=== PATIENT | male | born 1960 | race Caucasian/White ===

== ENCOUNTER 2020-01-15 13:03 | Inpatient (IN) ==
[2020-01-15] MEDS ORDERED: SODIUM CHLORIDE 0.9% 1000ML 1,000 ML IV SCH (13:45)
[2020-01-15] MEDS ORDERED: MoRPHine SULFATE 4 MG/ML 1 ML CARP\\VIAL IV STA (13:46)
[2020-01-15] MEDS ORDERED: ONDANSETRON INJ 2 MG/ML 2 ML VIAL IV STA (13:46)
--- NOTE | 2020-01-15 13:58 | Emergency Department Note ---
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 Symptoms began 2 to 3 days ago and have been progressively worsening. Last evening, the patient reports a fever of 102 F. He took 1 dose of cold medicine last night, but has taken no other medication since. Patient states the cough is nonproductive. He does report a history of hypertension, but denies any history of PE, DVT, CHF, asthma, or COPD. Patient denies any abdominal pain, nausea, vomiting. 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 He does live with family, but states nobody else in the household is sick. Patient denies any recent trauma or injury. He does report chronic wounds and skin discoloration on the bilateral feet which has not changed. Related Data Home oxygen amount: none Home Medications Home Medications Medication Instructions Recorded Confirmed Type amlodipine 10 mg PO DAILY@69901/15/20 01/15/20 History aspirin 81 mg PO DAILY@69901/15/20 01/15/20 History cholecalciferol (vitamin D3) 125 mcg PO DAILY@69901/15/20 01/15/20 History [Vitamin D3] doxazosin 2 mg PO BID 01/15/20 01/15/20 History furosemide 20 mg PO BID 01/15/20 01/15/20 History lisinopril 20 mg PO BID 01/15/20 01/15/20 History potassium chloride 10 meq PO DAILY@69901/15/20 01/15/20 History pravastatin 20 mg PO DAILY@69901/15/20 01/15/20 History Allergies Allergy/AdvReac Type Severity Reaction Status Date / Time No Known Allergies Allergy Unverified 01/15/20 14:26 Past Med/Surg History Medical History Hypertension Social History Feels Safe at Home: Yes Smoking Status: Never smoker Review of Systems A total of 10 systems reviewed and were otherwise negative Physical Exam Vital Signs: Vital Signs - 24 hr 01/15/20 13:03 01/15/20 13:13 01/15/20 13:42 Temperature 37.6 C H Temperature Source Oral Pulse Rate 78 Pulse Rate [Apical ] Pulse Rate from Sp O2 Sensor Respiratory Rate 24 Blood Pressure 111/65 Blood Pressure [Le ft Arm] Blood Pressure Jennifer n 80 Blood Pressure Jennifer n [Left Arm] Pulse Oximetry 90 91 90 Oxygen Delivery Me thod Room Air Nasal Can nula Room Air Room Air Oxygen Flow Rate 0 Sepsis Recent Feve r Within 48 Hours No Sepsis New/Unexpla ined Change in Men shila Status No Sepsis Action Take n by Nursing No Action Required Oxygen Flow Rate - Titration 2 Pulse Oximetry Pos t Tiitration 96 01/15/20 13:44 01/15/20 14:29 01/15/20 15:00 Temperature Temperature Source Pulse Rate 81 72 Pulse Rate [Apical ] Pulse Rate from Sp O2 Sensor 80 72 Respiratory Rate 24 27 H Blood Pressure 100/63 Blood Pressure [Le ft Arm] Blood Pressure Jennifer n 78 Blood Pressure Jennifer n [Left Arm] Pulse Oximetry 90 97 97 Oxygen Delivery Me thod Room Air Nasal Can nula Nasal Cannula Oxygen Flow Rate 0 2 Sepsis Recent Feve r Within 48 Hours Sepsis New/Unexpla ined Change in Men shila Status Sepsis Action Take n by Nursing Oxygen Flow Rate - Titration 2 Pulse Oximetry Pos t Tiitration 96 01/15/20 15:10 01/15/20 15:20 01/15/20 16:42 Temperature Temperature Source Pulse Rate 72 72 74 Pulse Rate [Apical ] Pulse Rate from Sp O2 Sensor 72 72 75 Respiratory Rate 21 26 H 21 Blood Pressure 95/59 L Blood Pressure [Le ft Arm] Blood Pressure Jennifer n 66 Blood Pressure Jennifer n [Left Arm] Pulse Oximetry 96 94 96 Oxygen Delivery Me thod Nasal Cannula Oxygen Flow Rate 2 Sepsis Recent Feve r Within 48 Hours Sepsis New/Unexpla ined Change in Men shila Status Sepsis Action Take n by Nursing Oxygen Flow Rate - Titration Pulse Oximetry Pos t Tiitration 01/15/20 17:00 01/15/20 18:00 01/15/20 18:14 Temperature Temperature Source Pulse Rate 69 76 74 Pulse Rate [Apical ] Pulse Rate from Sp O2 Sensor 69 77 73 Respiratory Rate 18 19 27 H Blood Pressure 95/58 L 91/54 L 100/57 L Blood Pressure [Le ft Arm] Blood Pressure Jennifer n 74 62 72 Blood Pressure Jennifer n [Left Arm] Pulse Oximetry 96 95 95 Oxygen Delivery Me thod Nasal Cannula Nasal Cannula Nasal Cannula Oxygen Flow Rate 2 2 2 Sepsis Recent Feve r Within 48 Hours Sepsis New/Unexpla ined Change in Men shila Status Sepsis Action Take n by Nursing Oxygen Flow Rate - Titration Pulse Oximetry Pos t Tiitration 01/15/20 18:30 01/15/20 19:42 Temperature Temperature Source Pulse Rate 69 Pulse Rate [Apical ] 72 Pulse Rate from Sp O2 Sensor 69 Respiratory Rate 18 21 Blood Pressure 95/62 L Blood Pressure [Le ft Arm] 103/55 L Blood Pressure Jennifer n 72 Blood Pressure Jennifer n [Left Arm] 71 Pulse Oximetry 96 96 Oxygen Delivery Me thod Nasal Cannula Nasal Cannula Oxygen Flow Rate 2 2 Sepsis Recent Feve r Within 48 Hours Sepsis New/Unexpla ined Change in Men shila Status Sepsis Action Take n by Nursing Oxygen Flow Rate - Titration Pulse Oximetry Pos t Tiitration Physical Exam: VITALS: Vitals are noted on the nurse's note and reviewed by myself. Vital signs stable. Patient is borderline febrile with a temperature of 37.6 C. GENERAL: Obese white male this is a 59-year-old, dyspneic, but in no acute distress, nondiaphoretic, well-developed well-nourished. SKIN: Patchy areas of erythema on the left lower extremity distal to the knee. No palpable cord. 1+ pitting edema noted in the left lower extremity. Chronic skin changes on the bilateral feet. No new or acute open wounds. No active bleeding or discharge. The skin was otherwise without rashes, erythema, edema, or bruising. There is no tenting of the skin. Capillary refill less than 2 seconds. HEAD: Normocephalic atraumatic. EYES: Conjunctivae without injection, sclerae without icterus. Extraocular movements intact. NECK: Supple without nuchal rigidity. No lymphadenopathy. Cervical spine is nontender. No JVD. HEART: Regular rate and rhythm without murmurs gallops or rubs. LUNGS: Clear to auscultation bilaterally without wheezes, rales or rhonchi. No retractions or accessory muscle use. ABDOMEN: Positive bowel sounds x 4. Normal tympanic percussion. Soft, nontender, without masses or organomegaly. No guarding or rebound tenderness. MUSCULOSKELETAL: No muscle atrophy, erythema, or edema noted. Full range of motion without joint tenderness in all extremities. No tenderness to palpation. Normal gait. Strength 5/5 throughout. NEURO: Patient was alert and oriented to person place and time. No focal neurological deficits. Course Course The patient was seen and evaluated as above. An order was placed for continuous cardiac monitoring. The monitor shows a normal sinus rhythm at a rate of 72 bpm. IV access obtained, labs drawn. Patient medicated with IV fluids, morphine, and Zofran. Ultrasound and x-ray imaging performed and reviewed by myself and radiologist as noted. Labs reviewed by myself. Patient started on IV Zosyn. I did ask nursing staff to obtain a weight in order to order vancomycin. I discussed the findings with the patient at bedside. He was reassessed and continues to note feeling dyspneic. He was agreeable with admission. I discussed the case with the manager copy. I discussed the case with Ada Betancourt PA-C [facility] hospitalist. She did agree to see and evaluate the patient for admission. Administered Medications Vancomycin HCl 2,500 mg/ (Sodium Chloride) 550 mls @ 200 mls/hr IV NOW STA Stop: 01/15/20 21:35 Last Admin: 01/15/20 19:41 Dose: 200 mls/hr Documented by: [id number] Ioversol (Optiray 320 125ml) 119 ml IV ONCE PRN PRN Reason: Interaction Checking Stop: 01/19/20 19:24 Last Admin: 01/15/20 19:26 Dose: 119 ml Documented by: [id number] Discontinued Medications Sodium Chloride (Nss 1000ml) 1,000 mls @ 999 mls/hr IV .Q1H1M ABENA Stop: 01/15/20 14:45 Last Infusion: 01/15/20 16:44 Dose: 0 mls/hr Documented by: [id number] Admin: 01/15/20 14:16 Dose: 999 mls/hr Documented by: [id number] Piperacillin Sod/Tazobactam (Sod 3.375 gm/ Dextrose) 100 ml in 115 mls @ 230 mls/hr IV NOW STA Stop: 01/15/20 16:07 Last Infusion: 01/15/20 17:30 Dose: 0 mls/hr Documented by: [id number] Admin: 01/15/20 16:42 Dose: 230 mls/hr Documented by: [id number] Morphine Sulfate (Morphine Sulfate) 4 mg IV NOW STA Stop: 01/15/20 13:47 Last Admin: 01/15/20 14:16 Dose: 4 mg Documented by: [id number] Ondansetron HCl (Zofran) 4 mg IV NOW STA Stop: 01/15/20 13:47 Last Admin: 01/15/20 14:16 Dose: 4 mg Documented by: [id number] Medical Decision Making Differential Diagnosis + acute exacerbation of chronic obstructive airways disease, + congestive heart failure, + asthma with exacerbation, + pulmonary embolism, + COPD, + bronchitis, + pneumothorax, + pneumonia, + pleural effusion, + CHF, + ACS and + aspiration In addition to the above, COVID-19, cellulitis, DVT, sepsis, malignancy, among others were considered Home Medications Current Medication List: was personally reviewed by me Laboratory Data Attestation: I reviewed the patient's lab results. Leukocytosis of 12,000. Mild anemia with a hemoglobin of 13.6 and hematocrit of 40.9. Mild thrombocytopenia with a platelet count of 122,000. Negative influenza testing. Coags normal. VBG shows a pH of 7.27 with PCO2 65. Creatinine elevated at 1.71. BUN elevated at 22. Otherwise, electrolytes and hepatic function without significant abnormality. Troponin negative. BNP elevated at 1723. Lactic acid elevated at 2.3. Result diagrams: 01/15/20 14:15 01/15/20 14:15 Lab Results 01/15/20 01/15/20 01/15/20 Range/Units 14:10 14:14 14:15 WBC 12.61 H (4.8-10.8) K/uL RBC 4.46 L (4.7-6.1) M/uL Hgb 13.6 L (14.0-18.0) g/dL Hct 40.9 L (42-52) % MCV 91.7 (80-100) fL MCH 30.5 (25-34) pg MCHC 33.3 (32-36) g/dL RDW Std Deviation 49.0 H (36.4-46.3) fL RDW Coeff of Kun 14.5 (11.5-14.5) % Plt Count 122 L (130-400) K/uL MPV 10.1 (7.4-10.4) fL Immature Gran % (Auto) 0.2 % Neut % (Auto) 80.8 % Lymph % (Auto) 8.7 % Conway % (Auto) 10.0 % Eos % (Auto) 0.1 % Baso % (Auto) 0.2 % Immature Gran # (Auto) 0.03 H (0.00-0.02) K/uL Neut # (Auto) 10.19 H (1.4-6.5) K/uL Lymph # (Auto) 1.10 L (1.2-3.4) K/uL Conway # (Auto) 1.26 H (0.11-0.59) K/uL Eos # (Auto) 0.01 (0-0.5) K/uL Baso # (Auto) 0.02 (0-0.2) K/uL PT (9.0-12.0) Seconds INR (0.9-1.1) APTT (21.0-31.0) Seconds PTT Ratio VBG pH (7.36-7.41) VBG pCO2 (38-50) mmHg VBG pO2 mmHg VBG HCO3 mmol/L VBG O2 Saturation % VBG Base Excess mEq/L Barometric Pressure mm/Hg Sodium (136-145) mmol/L Potassium (3.5-5.1) mmol/L Chloride (98-107) mmol/L Carbon Dioxide (21-32) mmol/L Anion Gap (3-11) BUN (7-18) mg/dl Creatinine (0.6-1.4) mg/dl Est Cr Clr Drug Dosing Est GFR ( Amer) Est GFR (Non-Af Amer) BUN/Creatinine Ratio (10-20) Glucose (70-99) mg/dl Lactate (0.4-2.0) mmol/L Calcium (8.5-10.1) mg/dl Magnesium (1.8-2.4) mg/dl Total Bilirubin (0.2-1) mg/dl AST (15-37) U/L ALT (12-78) U/L Alkaline Phosphatase (45-117) U/L Troponin I (0-0.045) ng/ml NT-Pro-B Natriuret Pep (0-900) pg/ml Total Protein (6.4-8.2) gm/dl Albumin (3.4-5.0) gm/dl Globulin (2.5-4.0) gm/dl Albumin/Globulin Ratio (0.9-2) Influenza Type A (PCR) Neg for Influ A (Neg) Influenza Type B (PCR) Neg for Influ B (Neg) SARS-CoV-2 RNA (RT-PCR) Cancelled 01/15/20 01/15/20 01/15/20 Range/Units 14:15 14:15 14:56 WBC (4.8-10.8) K/uL RBC (4.7-6.1) M/uL Hgb (14.0-18.0) g/dL Hct (42-52) % MCV (80-100) fL MCH (25-34) pg MCHC (32-36) g/dL RDW Std Deviation (36.4-46.3) fL RDW Coeff of Kun (11.5-14.5) % Plt Count (130-400) K/uL MPV (7.4-10.4) fL Immature Gran % (Auto) % Neut % (Auto) % Lymph % (Auto) % Conway % (Auto) % Eos % (Auto) % Baso % (Auto) % Immature Gran # (Auto) (0.00-0.02) K/uL Neut # (Auto) (1.4-6.5) K/uL Lymph # (Auto) (1.2-3.4) K/uL Conway # (Auto) (0.11-0.59) K/uL Eos # (Auto) (0-0.5) K/uL Baso # (Auto) (0-0.2) K/uL PT 11.9 (9.0-12.0) Seconds INR 1.1 (0.9-1.1) APTT 36.2 H (21.0-31.0) Seconds PTT Ratio 1.3 VBG pH 7.27 L (7.36-7.41) VBG pCO2 65 H (38-50) mmHg VBG pO2 50 mmHg VBG HCO3 29 mmol/L VBG O2 Saturation 78.8 % VBG Base Excess 0.9 mEq/L Barometric Pressure 738.9 mm/Hg Sodium 134 L (136-145) mmol/L Potassium 3.5 (3.5-5.1) mmol/L Chloride 98 (98-107) mmol/L Carbon Dioxide 27 (21-32) mmol/L Anion Gap 9.0 (3-11) BUN 22 H (7-18) mg/dl Creatinine 1.71 H (0.6-1.4) mg/dl Est Cr Clr Drug Dosing Not Reportable Est GFR ( Amer) 50.0 Est GFR (Non-Af Amer) 43.2 BUN/Creatinine Ratio 12.7 (10-20) Glucose 104 H (70-99) mg/dl Lactate (0.4-2.0) mmol/L Calcium 8.6 (8.5-10.1) mg/dl Magnesium 2.0 (1.8-2.4) mg/dl Total Bilirubin 1.1 H (0.2-1) mg/dl AST 34 (15-37) U/L ALT 35 (12-78) U/L Alkaline Phosphatase 46 (45-117) U/L Troponin I < 0.015 (0-0.045) ng/ml NT-Pro-B Natriuret Pep 1723 H (0-900) pg/ml Total Protein 7.7 (6.4-8.2) gm/dl Albumin 3.4 (3.4-5.0) gm/dl Globulin 4.3 H (2.5-4.0) gm/dl Albumin/Globulin Ratio 0.8 L (0.9-2) Influenza Type A (PCR) (Neg) Influenza Type B (PCR) (Neg) SARS-CoV-2 RNA (RT-PCR) 01/15/20 Range/Units 14:56 WBC (4.8-10.8) K/uL RBC (4.7-6.1) M/uL Hgb (14.0-18.0) g/dL Hct (42-52) % MCV (80-100) fL MCH (25-34) pg MCHC (32-36) g/dL RDW Std Deviation (36.4-46.3) fL RDW Coeff of Kun (11.5-14.5) % Plt Count (130-400) K/uL MPV (7.4-10.4) fL Immature Gran % (Auto) % Neut % (Auto) % Lymph % (Auto) % Conway % (Auto) % Eos % (Auto) % Baso % (Auto) % Immature Gran # (Auto) (0.00-0.02) K/uL Neut # (Auto) (1.4-6.5) K/uL Lymph # (Auto) (1.2-3.4) K/uL Conway # (Auto) (0.11-0.59) K/uL Eos # (Auto) (0-0.5) K/uL Baso # (Auto) (0-0.2) K/uL PT (9.0-12.0) Seconds INR (0.9-1.1) APTT (21.0-31.0) Seconds PTT Ratio VBG pH (7.36-7.41) VBG pCO2 (38-50) mmHg VBG pO2 mmHg VBG HCO3 mmol/L VBG O2 Saturation % VBG Base Excess mEq/L Barometric Pressure mm/Hg Sodium (136-145) mmol/L Potassium (3.5-5.1) mmol/L Chloride (98-107) mmol/L Carbon Dioxide (21-32) mmol/L Anion Gap (3-11) BUN (7-18) mg/dl Creatinine (0.6-1.4) mg/dl Est Cr Clr Drug Dosing Est GFR ( Amer) Est GFR (Non-Af Amer) BUN/Creatinine Ratio (10-20) Glucose (70-99) mg/dl Lactate 2.3 H* (0.4-2.0) mmol/L Calcium (8.5-10.1) mg/dl Magnesium (1.8-2.4) mg/dl Total Bilirubin (0.2-1) mg/dl AST (15-37) U/L ALT (12-78) U/L Alkaline Phosphatase (45-117) U/L Troponin I (0-0.045) ng/ml NT-Pro-B Natriuret Pep (0-900) pg/ml Total Protein (6.4-8.2) gm/dl Albumin (3.4-5.0) gm/dl Globulin (2.5-4.0) gm/dl Albumin/Globulin Ratio (0.9-2) Influenza Type A (PCR) (Neg) Influenza Type B (PCR) (Neg) SARS-CoV-2 RNA (RT-PCR) Imaging Data Radiologist's Impression: XR chest 1V portable HISTORY: Dyspnea COMPARISON: None. FINDINGS: There are low lung volumes. No pleural effusions. No pneumothorax. The heart is mildly enlarged. There is mild central pulmonary vascular congestion wi thout overt edema. No focal lung consolidations to suggest pneumonia. IMPRESSION: Cardiomegaly with mild congestive change. ACT 112: Negative or not required by law. Electronically signed by: Murphy Santoyo M.D. 01/15/2020 3:20 PM ULTRASOUND LEFT LOWER EXTREMITY VENOUS CLINICAL HISTORY: Dyspnea. Left lower extremity edema. COMPARISON STUDY: No priors. TECHNIQUE: Real-time, grayscale, and color Doppler sonography of the deep veins of the left lower extremity was performed from the inguinal crease to the calf. Compression and augmentation were utilized. FINDINGS: There is no sonographic evidence of deep venous thrombosis identified in the left lower extremity. The common femoral, superficial femoral, and popliteal veins are patent and normally compressible. The greater saphenous vein and the profunda femoris vein at the junction with the common femoral vein are clear. The visualized calf veins are patent. IMPRESSION: There is no sonographic evidence of deep venous thrombosis identified in the left lower extremity. ACT 112: Negative or not required by law. Electronically signed by: Akash Richards M.D. 01/15/2020 4:29 PM ECG Data Attestation: I personally reviewed and interpreted this ECG as follows: Interpretation: Normal sinus rhythm with a ventricular rate of [address] elevation or depression. No T wave inversion. Incomplete right bundle branch block. Blood Pressure Blood Pressure Findings: Low blood pressure Blood Pressure Disposition: further management by hospitalist ALTHEA Ontiveros This 59-year-old male patient presents emergency department today for evaluation of dyspnea, left leg pain, fever. Examination is initially concerning. He is borderline febrile with a temperature of 37.6 while here in the department. He is obviously dyspneic and utilizing accessory muscles. The patient's room air O2 saturation was 90%. He did bump up to 95% with 2 L of oxygen via nasal cannula. Initial exam concerning for cellulitis/sepsis versus DVT/PE. Ultrasound negative for DVT. 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 There was concern for Covid-19, as he is uncertain of any exposures. Patient does have a leukocytosis and elevated lactic acid. Suspect this is associated with the cellulitis of the left lower extremity. Chest x-ray concerning for cardiomegaly with mild congestive change. Work-up here in the ED concerning for possible SIRS/sepsis. The patient was started on broad-spectrum antibiotics and will be admitted to the hospitalist service for ongoing management and care. Please see hospitalist dictation`. The chart was completed utilizing [employer] voice recognition software. Grammatical errors, random word insertions, pronoun errors, and incomplete sentences are an occasional consequence of this system due to software limitations, ambient noise, and hardware issues. Any formal questions or concerns about the content, text, or information contained within the body of this dictation should be directly addressed to the provider for clarification. Impression & Plan Acute dyspnea, ARDS (adult respiratory distress syndrome), Cellulitis of left leg, Hypotension, Fever Discharge Plan Visit Data Chief Complaint: Shortness of Breath/Dyspnea Stated Complaint: SOB - REPORTED FEVER ED Provider: Paul Hall ED Midlevel Provider: Kelly Marinelli Discharge Problem: Acute dyspnea, ARDS (adult respiratory distress syndrome), Cellulitis of left leg, Hypotension, Fever Patient Disposition: Admitted As Inpatient Forms Stand Alone Forms: [facility] Prescriptions Prescriptions: No Action potassium chloride 10 mEq Capsule, Extended Release 10 meq PO DAILY@0700 RF: 0 lisinopril 20 mg Tablet 20 mg PO BID RF: 0 aspirin 81 mg Tablet,Delayed Release (Dr/Ec) 81 mg PO DAILY@0700 RF: 0 amlodipine 10 mg Tablet 10 mg PO DAILY@0700 RF: 0 pravastatin 20 mg Tablet 20 mg PO DAILY@0700 RF: 0 furosemide 20 mg Tablet 20 mg PO BID RF: 0 doxazosin 2 mg Tablet 2 mg PO BID RF: 0 cholecalciferol (vitamin D3) [Vitamin D3] 125 mcg (5,000 unit) Tablet 125 mcg PO DAILY@0700 RF: 0 Referrals Referrals: Naren Oliva DO [Primary Care Provider] -
[2020-01-15 14:43] LABS: Basophils # (auto) 0.02 K/uL (0-0.2); Basophils % (auto) 0.2 %; Eosinophils # (auto) 0.01 K/uL (0-0.5); Eosinophils % (auto) 0.1 %; Hematocrit (blood only) 40.9 % (42-52); Hemoglobin 13.6 g/dL (14.0-18.0); Immature Granulocytes # (auto) 0.03 K/uL (0.00-0.02); Immature Granulocytes % (auto) 0.2 %; Lymphocytes % (auto) 8.7 %; Mean Corpuscular Hemoglobin 30.5 pg (25-34); Mean Corpuscular Hgb Conc 33.3 g/dL (32-36); Mean Corpuscular Volume 91.7 fL (80-100); Mean Platelet Volume 10.1 fL (7.4-10.4); Monocytes # (auto) 1.26 K/uL (0.11-0.59); Neutrophils # (auto) 10.19 K/uL (1.4-6.5); Neutrophils % (auto) 80.8 %; Platelet Count 122 K/uL (130-400); RDW Coefficient of Variation 14.5 % (11.5-14.5); Red Blood Count 4.46 M/uL (4.7-6.1); White Blood Count 12.61 K/uL (4.8-10.8)
[2020-01-15 15:03] LABS: INR 1.1 (0.9-1.1); Partial Thromboplastin Ratio 1.3; Partial Thromboplastin Time 36.2 Seconds (21.0-31.0); Prothrombin Time 11.9 Seconds (9.0-12.0)
[2020-01-15 15:05] LABS: Alanine Aminotransferase 35 U/L (12-78); Albumin Level 3.4 gm/dl (3.4-5.0); Aspartate Aminotransferase 34 U/L (15-37); BUN Creatinine Ratio 12.7 (10-20); Blood Urea Nitrogen 22 mg/dl (7-18); Calcium 8.6 mg/dl (8.5-10.1); Carbon Dioxide 27 mmol/L (21-32); Chloride 98 mmol/L (98-107); Est GFR (Non-African American) 43.2; Glucose 104 mg/dl (70-99); Potassium 3.5 mmol/L (3.5-5.1); Sodium 134 mmol/L (136-145)
[2020-01-15 15:10] LABS: Albumin Globulin Ratio 0.8 (0.9-2); Alkaline Phosphatase 46 U/L (45-117); Bilirubin,Total 1.1 mg/dl (0.2-1); Globulin 4.3 gm/dl (2.5-4.0); NT Pro B Type Natriuretic Pept 1723 pg/ml (0-900); Total Protein 7.7 gm/dl (6.4-8.2); Troponin I < 0.015 ng/ml (0-0.045)
--- NOTE | 2020-01-15 15:21 | XRay Report ---
XR chest 1V portable HISTORY: Dyspnea COMPARISON: None. FINDINGS: There are low lung volumes. No pleural effusions. No pneumothorax. The heart is mildly enla rged. There is mild central pulmonary vascular congestion without overt edema. No focal lung consolid ations to suggest pneumonia. IMPRESSION: Cardiomegaly with mild congestive change. ACT 112: Negative or not required by law. Electronically signed by: Murphy Santoyo M.D. 01/15/2020 3:20 PM
[2020-01-15 15:25] LABS: Base Excess VBG 0.9 mEq/L; Oxygen Saturation VBG 78.8 %; pH VBG 7.27 (7.36-7.41)
[2020-01-15 15:33] LABS: Influenza A virus by PCR Neg for Influ A (Neg); Influenza B virus by PCR Neg for Influ B (Neg)
[2020-01-15] MEDS ORDERED: PIPERACILLIN/TAZOBACTAM 3.375 GM in DEXTROSE 5% 100 ML/100 ML BAG IV STA (15:38)
[2020-01-15] MEDS ORDERED: PIPERACILL/TAZOBAC CONSULT ACTIVE PRN ×2 (15:38→20:13)
--- NOTE | 2020-01-15 16:29 | Electrocardiogram Report ---
Test Reason : Blood Pressure : / mmHG Vent. Rate : 074 BPM Atrial Rate : 074 BPM P-R Int : 174 ms QRS Dur : 104 ms QT Int : 412 ms P-R-T Axes : 003 039 032 degrees QTc Int : 457 ms Normal sinus rhythm Incomplete right bundle branch block No previous ECGs available Confirmed by Adrian Mota ([id number]) on 01/15/2020 4:29:13 PM Referred By: Confirmed By:Martin Mota
--- NOTE | 2020-01-15 16:31 | Ultrasound Report ---
ULTRASOUND LEFT LOWER EXTREMITY VENOUS CLINICAL HISTORY: Dyspnea. Left lower extremity edema. COMPARISON STUDY: No priors. TECHNIQUE: Real-time, grayscale, and color Doppler sonography of the deep veins of the left lower ext remity was performed from the inguinal crease to the calf. Compression and augmentation were utilized . FINDINGS: There is no sonographic evidence of deep venous thrombosis identified in the left lower ext remity. The common femoral, superficial femoral, and popliteal veins are patent and normally compress ible. The greater saphenous vein and the profunda femoris vein at the junction with the common femora l vein are clear. The visualized calf veins are patent. IMPRESSION: There is no sonographic evidence of deep venous thrombosis identified in the left lower e xtremity. ACT 112: Negative or not required by law. Electronically signed by: Akash Richards M.D. 01/15/2020 4:29 PM
--- NOTE | 2020-01-15 17:34 | History & Physical Report ---
Date of Service January 15, 2020 Assessment & Plan (1) ARDS (adult respiratory distress syndrome): - Admit to PCU - COVID-19 testing in process, continue airborne precautions until resulted - using accessory muscles and has prolonged expiratory phase, requiring 2 L to maintain sats of 95% where he typically does not use O2 at baseline - albuterol inhaler tx now - Possible that this is secondary to cellulitis of the Left leg - CXR reviewed showing cardiomegaly with mild congestive change. - Checking CT PE now to rule out clot as well as evaluate for possible underlying pneumonia - WBC = 12.6, lactic acid = 2.3, T-max = 37.6 here, and reported fever of 102 F yesterday. (2) Cellulitis of left leg: - Likely cause of hypotension - Outlined with skin marker - Continue IV zosyn and add on vanc now - Wound consulted (3) Hypotension: - Likely secondary to cellulitis, Sirs criteria, possible sepsis -LA elevated at 2.3, recheck -Administered 1L NSS in the ER, hold on further fluids at this point as the pat ient with acute dyspnea, elevated BNP, CXR showing pulmonary congestion, use of accessory muscles -Possible decompensated heart failure in the setting of impending sepsis from cellulitis. Patient has elevated BNP, typically uses Lasix for edema of the lower extremity with chronic venous stasis. Holding other antihypertensives at this time. Took all morning meds including amlodipine, lisinopril, doxazosin and lasix. - Checking 2D echo - EKG reviewed showing RBBB, no previous one to compare to - Check troponin x 1 more set, initial was negative. (4) HLD (hyperlipidemia): - Cont pravastatin 20 mg daily (5) Morbid obesity with BMI of 45.0-49.9, adult: - Diet and exercise education needs to be reiterated throughout admission and on discharge (6) Venous ulcer of left lower extremity without varicose veins: - Wound consults for chronic ulcerations - Chronic - Continue doxazosin - No dvt of the left lower extremity on US (7) DVT prophylaxis: - Lovenox subq CODE: Full Dispo: From home, likely to remain in the hospital x 1-2 days History of Present Illness Primary Care Provider: Naren Oliva, DO This is a 59 yo M with PMHx of HTN, HLD, morbid obesity with BMI of 45, chronic venous stasis ulcers on bilateral lower extremities w/ history of vein stripping over 10 years ago, who presents with acute worsening of breath which started on Sunday. Yesterday, he was dyspneic with minimal ADLs, fever of 102, sweats, chills, dry cough and diarrhea. He also noticed increased redness of his left leg which started at his foot and has seemed to work its way up his leg throughout the day today. It is extremely painful for him to put weight on the left foot, and is unable to walk on it. It is much more swollen than normal, despite chronic venous ulcerations. 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 He typically travels up and down the [facility], and on Sunday he was in [place] for a drop off. He is a sedentary individual, and has been even more so since worsening SOB in the past week. Denies sick contacts. Lives at home with his mother. Here in the ER the patient is found to be hypotensive with blood pressure of 90s/50s, T-max = 37.6, and requiring 2 L of O2 via NC and sats of 95%. Left lower extremity is hot, red and tender to touch. Allergies Allergy/AdvReac Type Severity Reaction Status Date / Time No Known Allergies Allergy Unverified 01/15/20 14:26 Home Medications Home Medications Medication Instructions Recorded Confirmed Type amlodipine 10 mg PO DAILY@0701/15/20 01/15/20 History aspirin 81 mg PO DAILY@0701/15/20 01/15/20 History cholecalciferol (vitamin D3) 125 mcg PO DAILY@0701/15/20 01/15/20 History [Vitamin D3] doxazosin 2 mg PO BID 01/15/20 01/15/20 History furosemide 20 mg PO BID 01/15/20 01/15/20 History lisinopril 20 mg PO BID 01/15/20 01/15/20 History potassium chloride 10 meq PO DAILY@0700 01/15/20 01/15/20 History pravastatin 20 mg PO DAILY@0701/15/20 01/15/20 History Past Med/Surg History Medical History Hypertension Social History Preferred Language: Croatian Communication Ability: Effective Comic Illustrator Required: No Beliefs That Will Affect Care: None Current Living Situation: Family Other Information That Helps Us Care for You: No Feels Safe at Home: Yes Safety Concerns: Feels Safe At This Time Smoking Status: Never smoker Hx Alcohol Use: Yes Alcohol type: beer Hx Substance Use: No Review of Systems Review of Systems: Constitutional: As per HPI, + fever, sweats and chills Eyes: No diplopia, no worsening or blurred vision ENT: normal hearing, no trouble swallowing Respiratory: + Dry cough, no sputum, + dyspnea on exertion Cardiovascular: No Chest pain, + tightness and worse with deep breaths, no palpitations Abdomen: No pain, nausea, vomiting or constipation. + diarrhea Musculoskeletal: + As per HPI, pain and redness worsening involving the left lower leg, otherwise no joint pain, calf pain, swelling Neurologic: No weakness, numbness/tingling, or balance problems Psychiatric: No anxiety or depression Skin: No rash or itch Physical Exam Physical Exam: General: awake, alert, no apparent distress, morbidly obese with BMI of 45 Head: Normocephalic, atraumatic ENT: PERRL, EOMI, no pharyngeal exudate, mucous membranes moist Chest: + Wearing in a 95 mask, difficult to auscultate due to body habitus, + fi ne rales throughout, + prolonged expiratory phase, +use of accessory muscles, on 2L via NC with O2 sats =95%, no wheezing or rhonchi Cardiac: Regular rate and rhythm, no murmur, no JVD, normal peripheral pulses Abdominal: NABS x 4 quadrants, obese, soft, nondistended nontender to palpation, no rebound, guarding or tenderness Extremities: L+ chronic ulcerations of bilateral feet, LLE with erythema and warmth to touch, streaking going up the inner left leg thigh to groin, outlined with skin marker, tenderness to light touch, +1 pitting edema, no edema of the RLE. R calf nontender to palpation. Psych: Normal mood and affect Neuro: AAO x 3, no gross motor deficits, speech is clear Skin: no rash or erythema Results & Data Results & Data ([facility]) Vital Signs (Past 12 Hours) Vital Signs Temp Pulse Resp BP Pulse Ox 01/15/20 16:42 74 21 95/59 L 96 01/15/20 15:20 72 26 H 94 01/15/20 15:10 72 21 96 01/15/20 15:00 72 27 H 97 01/15/20 14:29 81 24 100/63 97 01/15/20 13:44 90 01/15/20 13:42 90 01/15/20 13:13 37.6 C H 78 24 111/65 91 01/15/20 13:03 90 Diagnostic Findings XR chest 1V portable HISTORY: Dyspnea COMPARISON: None. FINDINGS: There are low lung volumes. No pleural effusions. No pneumothorax. The heart is mildly enlarged. There is mild central pulmonary vascular congestion without overt edema. No focal lung consolidations to suggest pneumonia. IMPRESSION: Cardiomegaly with mild congestive change. ULTRASOUND LEFT LOWER EXTREMITY VENOUS CLINICAL HISTORY: Dyspnea. Left lower extremity edema. COMPARISON STUDY: No priors. TECHNIQUE: Real-time, grayscale, and color Doppler sonography of the deep veins of the left lower extremity was performed from the inguinal crease to the calf. Compression and augmentation were utilized. FINDINGS: There is no sonographic evidence of deep venous thrombosis identified in the left lower extremity. The common femoral, superficial femoral, and popliteal veins are patent and normally compressible. The greater saphenous vein and the profunda femoris vein at the junction with the common femoral vein are clear. The visualized calf veins are patent. IMPRESSION: There is no sonographic evidence of deep venous thrombosis identified in the left lower extremity. ECG Additional Comments: 15-JAN-2020 14:06:40 [facility]-EDSTAT ROUTINE RETRIEVAL Normal sinus rhythm Incomplete right bundle branch block No previous ECGs available Confirmed by Adrian Mota ([id number]) on 01/15/2020 4:29:13 PM 25mm/s 10mm/mV 150Hz 9.0.9 12SL 241 JEEVAN: 10 Confirmed By: Adrian Mota Vent. rate 74 BPM DE interval 174 ms QRS duration 104 ms QT/QTc 412/457 ms P-R-T axes 3 39 32 Code Status & VTE Plan Code Status Full code - discussed with pt at bedside Supervising Physician Co-Signing Physician Notes Patient was seen and examined independently I discussed the case with Ada Mejia PAC I reviewed pertinent past medical social family history and also the plan of care and agree with the plan of care. Any exceptions will be noted below Pt with possible sepsis, from cellulitis source, concern for acute respiratory distress with hypoxia from sepsis, will rule out covid, there is some mild fluid overload on cxr with unknown EF plus low blood pressure prevents diuresis and hypoxia prevent volume resuscitation, may benefit from CPAP if hypoxia progresses will treat with broad spectrum antibiotics, vanco and zosyn, check Echo, pending covid PG Care Time/CCT Total # of Minutes Spent Total Time Spent with Patient: Total time spent is greater than 50% in coordination of care (as documented) at patient's floor/unit and/or counseling patient: Coding Level of Care Code 74612 Initial Inpt Care Lvl 3 Diagnoses ARDS (adult respiratory distress syndrome) J80 Cellulitis of left leg L03.116 Hypotension I95.9 HLD (hyperlipidemia) E78.5 Morbid obesity with BMI of 45.0-49.9, adult E66.01; Z68.42 Venous ulcer of left lower extremity without varicose veins I87.2; L97.929 DVT prophylaxis Z29.9
[2020-01-15] MEDS ORDERED: VANCOMYCIN CONSULT ACTIVE PRN (18:03)
[2020-01-15] MEDS ORDERED: VANCOMYCIN HCL 1,000 MG in SODIUM CHLORIDE 0.9% 250 ML IV SCH (18:15)
[2020-01-15] MEDS ORDERED: VANCOMYCIN HCL 2,500 MG in SODIUM CHLORIDE 0.9% 500 ML IV STA (18:51)
--- NOTE | 2020-01-15 19:11 | Pharmacy Report ---
Pharmacy Abx Initial Consult - Date of Service January 15, 2020 - Pharmacy Dosing Scope Date of Consult: 01/15/2020 Consultation requested by: Ada Betancourt Pharmacy is consulted to initiate vancomycin IV dosing therapy, order appropriate labs and adjust drug dose/frequency. - Subjective The patient is a 59 year old M admitted on . - Objective Height: 5 ft 11 in Weight: 146.2 kg Vital Signs (Past 12hrs): Vital Signs Temp Pulse Resp BP Pulse Ox 01/15/20 18:30 69 18 95/62 L 96 01/15/20 18:14 74 27 H 100/57 L 95 01/15/20 18:00 76 19 91/54 L 95 01/15/20 17:00 69 18 95/58 L 96 01/15/20 16:42 74 21 95/59 L 96 01/15/20 15:20 72 26 H 94 01/15/20 15:10 72 21 96 01/15/20 15:00 72 27 H 97 01/15/20 14:29 81 24 100/63 97 01/15/20 13:44 90 01/15/20 13:42 90 01/15/20 13:13 37.6 C H 78 24 111/65 91 01/15/20 13:03 90 Lab Results (24hrs): Laboratory Tests (24 Hours) 01/15/20 01/15/20 14:15 14:15 WBC 12.61 H Neut # (Auto) 10.19 H Creatinine 1.71 H Est Cr Clr Drug Dosing Not Reportable Micro Results: 01/15/20 14:56 Aerobic Blood Culture - Pending Blood Anaerobic Blood Culture - Pending 01/15/20 14:19 Aerobic Blood Culture - Pending Blood Anaerobic Blood Culture - Pending - Assessment & Plan Assessment 59 year old M with PMH of hypertension presented to the ED with complaints of fever, cough, SOB, diarrhea, L lower extremity pain,swelling and redness. Patient does have chronic wounds on b/l feet. WBC elevated 12.6, neutrophils 10, Tmax in ED 37.6 C, lactic acid 2.3, hypotensive. Patient was started on zosyn in the emergency department, admitting team adding vancomycin for additional coverage. Patient's SCR elevated at 1.71, unknown baseline. CXray "Cardiomegaly with mild congestive change", no focal suggestion of pneumonia. Discussed with provider if lung source r/o as source of infection possible use of daptomycin, as patient's BMI 45 kg/m2 may be difficult to dose vancomycin therapeutically/risk for accumulation especially if this is an CINDY that quickly resolves, and zosyn + vancomycin combination has risk of kidney injury. Per provider would like to cover lung source as patient with respiratory symptoms, multiple issues at this time. Did also discuss alternative linezolid but blood cultures are pending at this time. Reasonable to start vancomycin, will closely monitor renal function/levels. Patient also being tested for COVID-19. Plan Vancomycin for treatment cellulitis/possible lung source/sepsis Vancomycin IV * Estimated PK Parameters: Vd 0.6 L/kg, Keith 0.062 hr-1, t1/2 11.2 hr * Loading dose: 2500 mg (17mg/kg) * Maintenance dose: 1500 mg IV (10 mg/kg) every 12 hours * Goal trough level 15-20 mcg/mL * Trough currently not ordered, will reassess dosing regimen in AM, will get prior to 4th maintenance dose if appropriate * A less than traditional dose has been selected due to likelihood of drug accumulation in obese patient Piperacillin/tazobactam * 3.375 g bolus administered over 30 minutes, then 4.5 g IV extended infusion every 8 hours for CrCl greater than 20 mL/min * Aggressive dosing selected due to critically ill status/BMI 35 or more. Pharmacy will continue to follow and will adjust dose/frequency as necessary. Thank you.
[2020-01-15] MEDS ORDERED: OPTIRAY 320 125ml IV PRN (19:25)
--- NOTE | 2020-01-15 19:42 | CT Scan Report ---
CT angio chest PE protocol CT DOSE: 1040.53 mGy.cm HISTORY: 59 years-old Male with r/o PE, hypoxia,. Acute hypoxia TECHNIQUE: Multiple CTA images of the chest were obtained after the intravenous administration of 119 ml Optiray 320. Coronal and sagittal MIPS were obtained from the axial data set and were submitted for review. All measurements were obtained according to NASCET criteria. A dose lowering technique w as utilized adhering to the principles of ALARA. COMPARISON: Duplex venous Doppler study and chest radiograph of same day FINDINGS: CTA: Moderate cardiomegaly. No pericardial effusion. Mild to moderate coronary artery calcifications. No t horacic aortic aneurysm or dissection. There is patency of the imaged great vessels. Reflux of contra st into the hepatic veins and IVC. The pulmonary artery is opacified to the level of the segmental br anches and demonstrates no filling defects to suggest pulmonary thromboembolic disease. Study is mild ly motion degraded. CT CHEST: Unremarkable thyroid. Scattered nonenlarged likely physiologic mediastinal and hilar lymph nodes. No pathologically enlarged lymph nodes by CT size criteria. No pneumothorax or pleural effusion. There i s mild pulmonary vascular congestion. Mild bronchial wall thickening with mild tracheobronchial secre tions. Linear subsegmental bibasilar consolidative opacities suggest atelectasis. No airspace consoli dation typical for pneumonia. Mild mosaic attenuation of the lung bases suggest air-trapping. Hepatomegaly with hepatic steatosis and probable splenomegaly. Obese body habitus with portions of th e anatomy outside the [id number]. Bones appear intact. IMPRESSION: 1. Cardiomegaly without acute aortic pathology or evidence of pulmonary thromboembolic disease. 2. Bronchial wall thickening suggests bronchitis versus reactive airway disease with mild associated tracheobronchial secretions. 3. Minimal subsegmental bibasilar atelectasis. No airspace consolidation typical for pneumonia. 4. Hepatomegaly with hepatic steatosis. ACT 112: Negative or not required by law. The above report was generated using voice recognition software. It may contain grammatical, syntax o r spelling errors. Electronically signed by: Williams Santacruz M.D. 01/15/2020 7:40 PM
[2020-01-15 22:03] LABS: Appearance Urine Clear (Clear); Bacteria Urine Automated Negative (Negative); Bilirubin Urine Negative (Negative); Blood Urine Negative (Negative); Color Urine Dark Yellow; Glucose Urine UA Negative (Negative); Ketones Urine Negative (Negative); Leukocyte Esterase Urine Negative (Negative); Nitrite Urine Negative (Negative); Protein Urine Trace (Negative); RBC Urine Automated 0-4 /hpf (0-4); Specific Gravity Urine > 1.045 (1.000-1.030); Urobilinogen Urine Negative (Negative)
[2020-01-15] MEDS ORDERED: ALBUTEROL HFA 8 GM INHALER INH ONE (22:23)
[2020-01-15] MEDS ORDERED: ONDANSETRON INJ 2 MG/ML 2 ML VIAL IV PRN (22:23)
[2020-01-15] MEDS: PIPERACILLIN/TAZOBACTAM 4.5 GM in DEXTROSE 5% 100 ML IV SCH (22:37)
[2020-01-15] MEDS: ACETAMINOPHEN 325 MG TAB PO PRN (22:40)
[2020-01-15] MEDS: DOXAZosin MESYLATE TAB 2 MG TAB PO SCH (22:55)
[2020-01-16] MEDS: ACETAMINOPHEN 325 MG TAB PO PRN (02:13)
[2020-01-16] MEDS: PIPERACILLIN/TAZOBACTAM 4.5 GM in DEXTROSE 5% 100 ML IV SCH ×3 (05:30→21:51)
[2020-01-16 05:51] LABS: Hematocrit (blood only) 37.5 % (42-52); Hemoglobin 12.1 g/dL (14.0-18.0); Mean Corpuscular Hemoglobin 29.8 pg (25-34); Mean Corpuscular Hgb Conc 32.3 g/dL (32-36); Mean Corpuscular Volume 92.4 fL (80-100); Mean Platelet Volume 9.8 fL (7.4-10.4); Platelet Count 116 K/uL (130-400); RDW Coefficient of Variation 14.8 % (11.5-14.5); RDW Standard Deviation 50.3 fL (36.4-46.3); Red Blood Count 4.06 M/uL (4.7-6.1); White Blood Count 10.21 K/uL (4.8-10.8)
[2020-01-16 06:07] LABS: Estimated Average Glucose 111 mg/dl; Hemoglobin A1C 5.5 % (4.5-5.6)
[2020-01-16 06:26] LABS: Albumin Level 2.9 gm/dl (3.4-5.0); BUN Creatinine Ratio 15.9 (10-20); Creatinine Clr Calc Pharmacy 58.5 ml/min; Est GFR (African American) 40.9; Est GFR (Non-African American) 35.3; Potassium 3.3 mmol/L (3.5-5.1)
[2020-01-16 06:29] LABS: Albumin Globulin Ratio 0.7 (0.9-2); Total Protein 6.9 gm/dl (6.4-8.2)
[2020-01-16] MEDS ORDERED: ASPIRIN 81 MG ECTAB PO SCH (07:00)
[2020-01-16] MEDS ORDERED: POTASSIUM CHLORIDE 10 MEQ TABCR PO SCH (07:00)
[2020-01-16] MEDS ORDERED: VANCOMYCIN HCL 1,500 MG in SODIUM CHLORIDE 0.9% 500 ML IV SCH (07:00)
--- NOTE | 2020-01-16 07:20 | Hospitalist Progress Note ---
Date of Service January 16, 2020 Assessment & Plan (1) Acute respiratory failure: Pt presented with acute respiratory failure that is multifactoral, likely influenced by sepsis from cellulitis,, his respiratory failure likely with combination of his septic syndrome and is improving. Ejection fraction on echo does not support any diagnosis of heart failure and heart failure has been ruled out. CTA 01/15/20 IMPRESSION: 1. Cardiomegaly without acute aortic pathology or evidence of pulmonary t hromboembolic disease. 2. Bronchial wall thickening suggests bronchitis versus reactive airway disease with mild associated tracheobronchial secretions. 3. Minimal subsegmental bibasilar atelectasis. No airspace consolidation typical for pneumonia. 4. Hepatomegaly with hepatic steatosis. (2) Cellulitis of left leg: - Likely cause of hypotension via sepsis source -Patient is improved greatly on Zosyn and Vanco - Continue IV zosyn and add on vanc - Wound consulted for lower extremity ulcerations LE doppler IMPRESSION: There is no sonographic evidence of deep venous thrombosis identified in the left lower extremity. (3) Elevated troponin: troponin has risen if the face of low blood pressure and sepsis no acute changes on EKG no regional wall motion abnormalities on echocardiogram this is likely demand ischemia we will change aspirin to full dose and check another troponin in the morning (4) Hypotension: - Likely secondary to cellulitis, Sirs criteria, possible sepsis holding his Cardura in the evening of 01/15 -Possible decompensated heart failure in the setting of impending sepsis from cellulitis. Patient has elevated BNP, typically uses Lasix for edema of the lower extremity with chronic venous stasis. Holding other antihypertensives at this time. Took all morning meds including amlodipine, lisinopril, doxazosin and lasix, this influences his low blood pressure (5) HLD (hyperlipidemia): - Cont pravastatin 20 mg daily, (6) Morbid obesity with BMI of 45.0-49.9, adult: - Diet and exercise education needs to be reiterated throughout admission and on discharge I did educate the patient on the obesity hypoventilation syndrome and sleep apnea which may impact his lower extremity swelling hypertension and and (7) Venous ulcer of left lower extremity without varicose veins: - Wound consults for chronic ulcerations - likely source of cellulitis - Chronic - Continue doxazosin - No dvt of the left lower extremity on US chronic venous stasis of his lower extremities reduce the dose to once a day (8) DVT prophylaxis: - Lovenox subq CODE: Full Dispo: From home, likely to remain in the hospital 2-3 more days Admission and Anticipated Discharge Date Admission Date: January 15, 2020 Subjective Patient looks much better today much less tachypneic still working to breathe somewhat. His erythema of his leg is improved however his leg is markedly ten mary beth. He is now requesting stronger pain medications he remains on vancomycin and Zosyn his COVID testing is negative. There initially was some concern regarding his cardiac status. He has had progressive increase of his troponin level over the day. He denies specific chest pain and his echocardiogram was without remark for regional wall motion abnormalities or decreased ejection fraction. Review of Systems Review of Systems: Moderate distress and fatigue no headache, blurry or double vision no speech or swallowing issues no chest pain, pressure or palpitations Persistent shortness of breath no abdominal pain, nausea or vomiting, diarrhea or constipation no dysuria, hematuria or frequency Significant right leg swelling improved from before markedly painful now no back pain, CVA tenderness or radicular pain Less erythema but still areas of erythema and tenderness of the left leg no focal signs of weakness or numbness or altered sensation no complaints or anxiety or depression Physical Exam Physical Exam: The patient appeared moderately uncomfortable tachypneic in pain Vital signs as documented. He is remained afebrile from admission Head exam is normocephalic atraumatic no scleral icterus Neck is without JVD, thyromegaly, or carotid bruits. Lungs are clear to auscultation, no focal loss of breath sounds Cardiac exam, Rhythm is regular.. No murmurs, rubs or gallops. Abdominal exam reveals normal bowel sounds, soft non tender, no masses Extremities has bilateral leg edema erythema has receded on the left leg is still very tender open areas are still present Neurologic exam is alert and oriented, no focal loss of strength or sensation Skin is without chronic venous stasis changes and open areas to bilateral lower extremities question of hypertensive ulcerations Psychologically is without concerns for anxiety or depression Results & Data Results & Data ([facility]) Vital Signs (Past 12 Hours) Vital Signs Temp Pulse Pulse Resp BP BP Pulse Ox 01/16/20 02:00 60 01/16/20 01:35 98.2 F 62 16 97/60 L 94 01/16/20 00:55 98.2 F 01/16/20 00:30 72 19 97/59 L 95 01/16/20 00:28 65 16 97/65 L 93 01/16/20 00:19 67 17 97/65 L 95 01/16/20 00:00 62 14 82/50 L 92 01/15/20 23:30 63 15 87/56 L 92 01/15/20 23:00 94/61 L 92 01/15/20 22:56 67 18 82/49 L 94 01/15/20 22:53 62 20 92 01/15/20 22:41 93 01/15/20 22:39 72 17 82/49 L 94 01/15/20 22:31 65 16 68/45 L 93 01/15/20 22:00 67 17 99/60 L 93 01/15/20 21:01 72 17 82/51 L 97 01/15/20 21:00 71 18 80/52 L 96 01/15/20 20:30 72 73 18 84/54 L 84/54 L 95 01/15/20 20:00 69 24 108/62 95 01/15/20 19:43 70 23 103/55 L 96 01/15/20 19:42 72 21 103/55 L 96 PG Care Time/CCT Total # of Minutes Spent Total Time Spent with Patient: Total time spent is greater than 50% in coordination of care (as documented) at patient's floor/unit and/or counseling patient: Coding Level of Care Code 34326 Subseq Hosp Care Lvl 3 Diagnoses Acute respiratory failure J96.00 Cellulitis of left leg L03.116 Elevated troponin R79.89 Hypotension I95.9 Hypotension type: unspecified hypotension type HLD (hyperlipidemia) E78.5 Morbid obesity with BMI of 45.0-49.9, adult E66.01; Z68.42 Venous ulcer of left lower extremity without varicose veins I87.2; L97.929 DVT prophylaxis Z29.9 (1) Hypotension Hypotension type: unspecified hypotension type Qualified Code(s): I95.9 - Hypotension, unspecified
[2020-01-16] MEDS: DOXAZosin MESYLATE TAB 2 MG TAB PO SCH (09:09)
[2020-01-16] MEDS: POTASSIUM CHLORIDE 20 MEQ TABCR PO SCH ×2 (09:10→21:47)
--- NOTE | 2020-01-16 09:28 | Pharmacy Report ---
Pharmacy Abx Dose Short Note - Date of Service January 16, 2020 - Assessment & Plan Assessment 59 year old M receiving vancomycin and Zosyn for treatment of sepsis 2/2 cellulitis of L leg. Pneumonia ruled out on CT. Day # 1/2 of vancomycin therapy. Day 1/7 of Zosyn therapy. SCr has risen from 1.7 -> 2. Will need to adjust vancomycin dose. Plan Vancomycin * Adjust to 1500 mg IV q16h - next dose due 01/16 @ 0000 * Goal trough level: 15 to 20 mcg/mL * No trough level currently ordered since vancomycin is only empiric. Will plan to check level prior to 4th dose if continued > 48 hours. Zosyn * Continue 4.5 gm IV q8h for BMI > 35 and CrCl > 20 mL/min Pharmacy will continue to follow and will adjust dose/frequency as necessary. Thank you.
[2020-01-16] MEDS: PRAVASTATIN SOD 20 MG TAB PO SCH (10:54)
[2020-01-16] MEDS: CHOLECALCIFEROL 1,000 UNITS 25 MCG TAB PO SCH (10:54)
[2020-01-16] MEDS: ENOXAPARIN INJ 40 MG/0.4 ML SYR SQ SCH (10:55)
--- NOTE | 2020-01-16 13:33 | XCELERA ---
[id number]
[2020-01-16] MEDS ORDERED: POTASSIUM CHLORIDE 10 MEQ TABCR PO ONE (18:00)
[2020-01-16] MEDS: MoRPHine SULFATE 2 MG/ML CARP IV PRN (18:22)
--- NOTE | 2020-01-16 19:45 | Electrocardiogram Report ---
Test Reason : Blood Pressure : / mmHG Vent. Rate : 063 BPM Atrial Rate : 063 BPM P-R Int : 172 ms QRS Dur : 116 ms QT Int : 458 ms P-R-T Axes : 018 053 035 degrees QTc Int : 468 ms Normal sinus rhythm Normal ECG When compared with ECG of 15-JAN-2020 14:06, No significant change was found Confirmed by Adrian Mota ([id number]) on 01/16/2020 7:45:05 PM Referred By: REFERRED SELF Confirmed By:Martin Mota
[2020-01-17 05:47] LABS: Hematocrit (blood only) 36.2 % (42-52); Hemoglobin 11.8 g/dL (14.0-18.0); Mean Corpuscular Hemoglobin 29.8 pg (25-34); Mean Corpuscular Hgb Conc 32.6 g/dL (32-36); Mean Corpuscular Volume 91.4 fL (80-100); Mean Platelet Volume 10.1 fL (7.4-10.4); Platelet Count 111 K/uL (130-400); RDW Coefficient of Variation 14.2 % (11.5-14.5); RDW Standard Deviation 47.5 fL (36.4-46.3); Red Blood Count 3.96 M/uL (4.7-6.1); White Blood Count 6.82 K/uL (4.8-10.8)
[2020-01-17] MEDS: ASPIRIN 325 MG ECTAB PO SCH (06:11)
[2020-01-17] MEDS: PRAVASTATIN SOD 20 MG TAB PO SCH (06:11)
[2020-01-17] MEDS: CHOLECALCIFEROL 1,000 UNITS 25 MCG TAB PO SCH (06:11)
[2020-01-17] MEDS: PIPERACILLIN/TAZOBACTAM 4.5 GM in DEXTROSE 5% 100 ML IV SCH ×3 (06:11→21:04)
[2020-01-17 06:18] LABS: Albumin Level 2.7 gm/dl (3.4-5.0); BUN Creatinine Ratio 15.9 (10-20); Calcium 8.5 mg/dl (8.5-10.1); Creatinine Clr Calc Pharmacy 79.4 ml/min; Est GFR (African American) 56.4; Est GFR (Non-African American) 48.6; Potassium 3.9 mmol/L (3.5-5.1)
[2020-01-17 06:21] LABS: Albumin Globulin Ratio 0.7 (0.9-2); Bilirubin,Total 0.8 mg/dl (0.2-1); Globulin 4.1 gm/dl (2.5-4.0); Total Protein 6.8 gm/dl (6.4-8.2); Troponin I 1.04 ng/ml (0-0.045)
[2020-01-17] MEDS: POTASSIUM CHLORIDE 20 MEQ TABCR PO SCH (08:23)
[2020-01-17] MEDS: ENOXAPARIN INJ 40 MG/0.4 ML SYR SQ SCH (08:23)
[2020-01-17] MEDS: OXYCODONE HCL IR 5 MG TAB (IMMEDIATE RELEASE) PO PRN ×2 (09:50→23:47)
[2020-01-17] MEDS ORDERED: VANCOMYCIN HCL 1,500 MG in SODIUM CHLORIDE 0.9% 500 ML IV SCH ×2 (12:00)
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
[2020-01-17] MEDS: TRAZODONE HCL 50 MG TAB PO SCH (20:53)
[2020-01-17] MEDS: MELATONIN 3 MG TAB PO SCH (20:54)
[2020-01-18] MEDS: PIPERACILLIN/TAZOBACTAM 4.5 GM in DEXTROSE 5% 100 ML IV SCH ×2 (05:34→14:04)
[2020-01-18] MEDS: PRAVASTATIN SOD 20 MG TAB PO SCH (06:00)
[2020-01-18] MEDS: CHOLECALCIFEROL 1,000 UNITS 25 MCG TAB PO SCH (06:01)
[2020-01-18] MEDS: ASPIRIN 325 MG ECTAB PO SCH (06:03)
[2020-01-18 06:14] LABS: Hematocrit (blood only) 36.5 % (42-52); Hemoglobin 11.6 g/dL (14.0-18.0); Mean Corpuscular Hemoglobin 29.8 pg (25-34); Mean Corpuscular Hgb Conc 31.8 g/dL (32-36); Mean Corpuscular Volume 93.8 fL (80-100); Mean Platelet Volume 10.4 fL (7.4-10.4); Platelet Count 129 K/uL (130-400); RDW Coefficient of Variation 14.4 % (11.5-14.5); RDW Standard Deviation 49.9 fL (36.4-46.3); Red Blood Count 3.89 M/uL (4.7-6.1); White Blood Count 8.12 K/uL (4.8-10.8)
[2020-01-18 06:38] LABS: Albumin Level 2.6 gm/dl (3.4-5.0); BUN Creatinine Ratio 13.1 (10-20); Calcium 8.6 mg/dl (8.5-10.1); Creatinine Clr Calc Pharmacy 89.2 ml/min; Est GFR (African American) 64.9; Potassium 4.3 mmol/L (3.5-5.1)
[2020-01-18 06:41] LABS: Albumin Globulin Ratio 0.6 (0.9-2); Bilirubin,Total 0.8 mg/dl (0.2-1); Globulin 4.2 gm/dl (2.5-4.0); Total Protein 6.8 gm/dl (6.4-8.2)
[2020-01-18] MEDS: ENOXAPARIN INJ 40 MG/0.4 ML SYR SQ SCH (08:37)
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
[2020-01-18] MEDS: AMOXICILLIN/CLAVULANATE 875 MG TAB PO SCH (17:00)
[2020-01-18] MEDS: TRAZODONE HCL 50 MG TAB PO SCH (21:02)
[2020-01-18] MEDS: MELATONIN 3 MG TAB PO SCH (21:02)
[2020-01-18] MEDS: ACETAMINOPHEN 325 MG TAB PO PRN (23:36)
[2020-01-18] MEDS: OXYCODONE HCL IR 5 MG TAB (IMMEDIATE RELEASE) PO PRN (23:36)
[2020-01-19] MEDS: ASPIRIN 325 MG ECTAB PO SCH (07:43)
[2020-01-19] MEDS: AMOXICILLIN/CLAVULANATE 875 MG TAB PO SCH ×2 (07:43→16:02)
[2020-01-19] MEDS: PRAVASTATIN SOD 20 MG TAB PO SCH (07:43)
[2020-01-19] MEDS: CHOLECALCIFEROL 1,000 UNITS 25 MCG TAB PO SCH (07:44)
[2020-01-19] MEDS: ENOXAPARIN INJ 40 MG/0.4 ML SYR SQ SCH (08:53)
[2020-01-19] MEDS ORDERED: POLYETHYLENE (MIRALAX) 17 GM PACK PO ONE (12:26)
--- NOTE | 2020-01-19 12:31 | Hospitalist Progress Note ---
Date of Service January 19, 2020 Assessment & Plan (1) Acute respiratory failure: Pt presented with acute respiratory failure that is multifactoral, likely influenced by sepsis from cellulitis,, his respiratory failure likely with combination of his septic syndrome is improving. Ejection fraction on echo does not support any diagnosis of heart failure and heart failure has been ruled out. CTA 01/15/20 IMPRESSION: 1. Cardiomegaly without acute aortic pathology or evidence of pulmonary throm boembolic disease. 2. Bronchial wall thickening suggests bronchitis versus reactive airway disease with mild associated tracheobronchial secretions. 3. Minimal subsegmental bibasilar atelectasis. No airspace consolidation typical for pneumonia. 4. Hepatomegaly with hepatic steatosis. Continues to require 2L NC. Will need 2 step before discharge. Will order overnight pulse ox for tonight but will need a sleep study after discharge. (2) Cellulitis of left leg: - Likely cause of hypotension via sepsis source -Patient improved Zosyn and Vanco - Transitioned to oral Augmentin in the evening of 01/17 - Wound consulted for lower extremity ulcerations may benefit from outpatient referral LE doppler 01/14 - no sonographic evidence of deep venous thrombosis identified in the left lower extremity Legs erythema continues to be pronounced and tender but has decreased quite a bit from line demarcated at admission (3) Elevated troponin: Likely demand ischemia from hypotension and sepsis on presentation - troponin has risen if the face of low blood pressure and sepsis - No acute changes on EKG, no regional wall motion abnormalities on echocardiogram Continue ASA - increased to 325 mg daily from 81 mg (4) Hypotension: - Likely secondary to cellulitis Doxazosin on hold. Blood pressures improving (5) HLD (hyperlipidemia): - Cont pravastatin 20 mg daily, (6) Morbid obesity with BMI of 45.0-49.9, adult: - Diet and exercise education needs to be reiterated throughout admission and on discharge Educated patient on the obesity hypoventilation syndrome and sleep apnea which may impact his lower extremity swelling hypertension. Will need sleep study in follow up (7) Venous ulcer of left lower extremity without varicose veins: - Wound consults for chronic ulcerations - likely source of cellulitis - Chronic, followed by wound care may benefit from outpatient referral to wound care - No dvt of the left lower extremity on US (8) Acute kidney injury: Resolvedlikely was a combination of low blood pressure and atn and possibly lasix administration (9) Insomnia: Continue trazodone and melatonin (10) DVT prophylaxis: - Lovenox subq CODE: Full Dispo: Will need PT/OT to assess patient's ability to care for himself at home as he is concerned for his mobility. Will need overnight pulse ox and 2 step. May be able to go home tomorrow if no need for rehab. Admission and Anticipated Discharge Date Admission Date: January 15, 2020 Subjective Mr. Perez is experiencing pain in his left leg around his foot and ankle. He is concerned about his ability to maneuver on his feet. He continues to require oxygen. He does feel sob with any activity. No cough. He has not had a bowel mo vement in a week. ROS Constitutional: no chills, aches, sweats or fever Respiratory: no cough, sputum, or wheezing Cardiac: no chest pain, palpitations, edema, orthopnea or lightheadedness GI: no abdominal pain, nausea, vomiting, diarrhea or constipation : no dysuria or hesitancy Extremities: no joint pain or weakness Skin: no rash All other systems reviewed and negative Physical Exam Physical Exam: General: no distress Eyes: normal inspection, PERLL Respiratory: chest non tender, expiratory wheezes right lung, no respiratory distress, no accessory muscle use Cardiac: regular rate and rhythm, no rub or gallop, no murmur, no edema, no jvd GI/: active bowel sounds, no abd pain or tenderness, soft, non distended Extremities: normal range of motion, normal strength, non tender Neuro/Psych: alert and oriented x 3, normal mood and affect Skin: normal color, dry, right leg with rash extending to knee - decreasing from line of demarcation Results & Data Results & Data ([facility]) Vital Signs (Past 12 Hours) Vital Signs Temp Pulse Resp BP Pulse Ox 01/19/20 08:35 37.0 C 71 16 143/84 H 97 PG Care Time/CCT Total # of Minutes Spent Total Time Spent with Patient: Total time spent is greater than 50% in coordination of care (as documented) at patient's floor/unit and/or counseling patient: Coding Level of Care Code 73461 Subseq Hosp Care Lvl 3 Diagnoses Acute respiratory failure J96.00 Cellulitis of left leg L03.116 Elevated troponin R79.89 Hypotension I95.9 Hypotension type: unspecified hypotension type HLD (hyperlipidemia) E78.5 Morbid obesity with BMI of 45.0-49.9, adult E66.01; Z68.42 Venous ulcer of left lower extremity without varicose veins I87.2; L97.929 Acute kidney injury N17.9 Insomnia G47.00 DVT prophylaxis Z29.9 (1) Hypotension Hypotension type: unspecified hypotension type Qualified Code(s): I95.9 - Hypotension, unspecified
[2020-01-19] MEDS ORDERED: ALBUTEROL HFA 8 GM INHALER INH PRN (12:39)
[2020-01-19] MEDS: OXYCODONE HCL IR 5 MG TAB (IMMEDIATE RELEASE) PO PRN ×2 (16:20→23:47)
[2020-01-19] MEDS: ACETAMINOPHEN 325 MG TAB PO PRN (16:20)
[2020-01-19] MEDS: ALBUT/IPRATROP 3MG/0.5MG NEB 3 ML VIAL NEB SCH ×3 (17:34→22:48)
[2020-01-19] MEDS: TRAZODONE HCL 50 MG TAB PO SCH (21:19)
[2020-01-19] MEDS: MELATONIN 3 MG TAB PO SCH (21:19)
[2020-01-20] MEDS: ALBUT/IPRATROP 3MG/0.5MG NEB 3 ML VIAL NEB SCH ×3 (05:09→11:18)
[2020-01-20] MEDS: OXYCODONE HCL IR 5 MG TAB (IMMEDIATE RELEASE) PO PRN (07:43)
[2020-01-20] MEDS: PRAVASTATIN SOD 20 MG TAB PO SCH (07:44)
[2020-01-20] MEDS: AMOXICILLIN/CLAVULANATE 875 MG TAB PO SCH (07:44)
[2020-01-20] MEDS: ASPIRIN 325 MG ECTAB PO SCH (07:44)
[2020-01-20] MEDS: CHOLECALCIFEROL 1,000 UNITS 25 MCG TAB PO SCH (07:45)
[2020-01-20] MEDS: ENOXAPARIN INJ 40 MG/0.4 ML SYR SQ SCH (07:47)
[2020-01-20 09:52] LABS: Hemoglobin 11.2 g/dL (14.0-18.0); Mean Corpuscular Hemoglobin 29.7 pg (25-34); Mean Corpuscular Volume 92.8 fL (80-100); Mean Platelet Volume 9.8 fL (7.4-10.4); Platelet Count 209 K/uL (130-400); RDW Coefficient of Variation 14.2 % (11.5-14.5); RDW Standard Deviation 47.9 fL (36.4-46.3); Red Blood Count 3.77 M/uL (4.7-6.1); White Blood Count 8.62 K/uL (4.8-10.8)
[2020-01-20 10:23] LABS: Basophils # (auto) 0.06 K/uL (0-0.2); Basophils % (auto) 0.7 %; Eosinophils # (auto) 0.31 K/uL (0-0.5); Eosinophils % (auto) 3.6 %; Immature Granulocytes # (auto) 0.31 K/uL (0.00-0.02); Immature Granulocytes % (auto) 3.6 %; Lymphocytes # (auto) 1.14 K/uL (1.2-3.4); Lymphocytes % (auto) 13.2 %; Monocytes # (auto) 0.75 K/uL (0.11-0.59); Monocytes % (auto) 8.7 %; Neutrophils # (auto) 6.05 K/uL (1.4-6.5); Neutrophils % (auto) 70.2 %; RBC Morphology Unremarkable
[2020-01-20] MEDS ORDERED: ALBUT/IPRATROP 3MG/0.5MG NEB 3 ML VIAL NEB PRN (11:26)
[2020-01-20] MEDS ORDERED: LINEZOLID CONSULT ACTIVE PRN (16:36)
--- NOTE | 2020-01-20 16:41 | Hospitalist Progress Note ---
Date of Service January 20, 2020 Assessment & Plan (1) Acute respiratory failure: Pt presented with acute respiratory failure that is multifactoral, likely influenced by sepsis from cellulitis,, his respiratory failure likely with combination of his septic syndrome is improving. Ejection fraction on echo does not support any diagnosis of heart failure and heart failure has been ruled out. CTA 01/15/20 IMPRESSION: 1. Cardiomegaly without acute aortic pathology or evidence of pulmonary throm boembolic disease. 2. Bronchial wall thickening suggests bronchitis versus reactive airway disease with mild associated tracheobronchial secretions. 3. Minimal subsegmental bibasilar atelectasis. No airspace consolidation typical for pneumonia. 4. Hepatomegaly with hepatic steatosis. On RA. Will need 2 step before discharge.Overnight pulse ox with 18 minutes of desaturation events. Will need nocturnal O2 (2) Cellulitis of left leg: - Likely cause of hypotension via sepsis source -Patient improved with Zosyn and Vanco initially - Transitioned to oral Augmentin in the evening of 01/17. Now with worsening and fever. Will change to IV linezolid to cover MRSA and restart Zosyn - Wound consulted for lower extremity ulcerations may benefit from outpatient referral LE doppler 01/14 - no sonographic evidence of deep venous thrombosis identified in the left lower extremity Doppler 01/19 without abscess Recheck blood cultures due to fever (3) Elevated troponin: Likely demand ischemia from hypotension and sepsis on presentation - troponin increased in the setting of low blood pressure and sepsis - No acute changes on EKG, no regional wall motion abnormalities on echocardiogram Continue ASA - increased to 325 mg daily from 81 mg (4) Hypotension: - Likely secondary to cellulitis Doxazosin on hold. Blood pressures acceptable (5) HLD (hyperlipidemia): - Cont pravastatin 20 mg daily, (6) Morbid obesity with BMI of 45.0-49.9, adult: - Diet and exercise education needs to be reiterated throughout admission and on discharge Educated patient on the obesity hypoventilation syndrome and sleep apnea which may impact his lower extremity swelling hypertension. Will need sleep study in follow up Overnight pulse ox reveals need for O2 (7) Venous ulcer of left lower extremity without varicose veins: - Wound consults for chronic ulcerations - likely source of cellulitis - Chronic, followed by wound care may benefit from outpatient referral to wound care - No dvt of the left lower extremity on US (8) Acute kidney injury: Resolvedlikely was a combination of low blood pressure and atn and possibly lasix administration (9) Insomnia: Continue trazodone and melatonin (10) DVT prophylaxis: - Lovenox subq CODE: Full Dispo: Patient is not willing to go to rehab, would like to go home with home health. Given his worsening picture, may need a few more nights in the hospital Admission and Anticipated Discharge Date Admission Date: January 15, 2020 Subjective Mr. Nolascos leg looks somewhat worse today than yesterday, more red and swollen. He continues to have difficulty putting any weight on his leg. This afternoon he is running a fever. ROS Constitutional: no chills, aches, sweats or fever Respiratory: no cough, sputum, or wheezing Cardiac: no chest pain, palpitations, edema, orthopnea or lightheadedness GI: no abdominal pain, nausea, vomiting, diarrhea or constipation : no dysuria or hesitancy Extremities: no joint pain or weakness Skin: see HPI All other systems reviewed and negative Physical Exam Physical Exam: General: no distress Eyes: normal inspection, PERLL Respiratory: chest non tender, clear to auscultation, normal breath sounds, no respiratory distress, no accessory muscle use Cardiac: regular rate and rhythm, no rub or gallop, no murmur, left leg lower extremity edema, no jvd GI/: active bowel sounds, no abd pain or tenderness, soft, non distended Extremities: normal range of motion, normal strength, non tender Neuro/Psych: alert and oriented x 3, normal mood and affect Skin: normal color, dry, left leg erythema to knee, Results & Data Results & Data ([facility]) Vital Signs (Past 12 Hours) Vital Signs Temp Pulse Resp BP Pulse Ox 01/20/20 16:08 38.0 C H 78 18 143/85 H 92 01/20/20 11:18 80 17 96 01/20/20 07:26 72 18 93 01/20/20 06:52 37.1 C 74 18 135/82 93 PG Care Time/CCT Total # of Minutes Spent Total Time Spent with Patient: Total time spent is greater than 50% in coord ination of care (as documented) at patient's floor/unit and/or counseling patient: Coding Level of Care Code 76865 Subseq Hosp Care Lvl 3 Diagnoses Acute respiratory failure J96.00 Cellulitis of left leg L03.116 Elevated troponin R79.89 Hypotension I95.9 Hypotension type: unspecified hypotension type HLD (hyperlipidemia) E78.5 Morbid obesity with BMI of 45.0-49.9, adult E66.01; Z68.42 Venous ulcer of left lower extremity without varicose veins I87.2; L97.929 Acute kidney injury N17.9 Insomnia G47.00 DVT prophylaxis Z29.9 (1) Hypotension Hypotension type: unspecified hypotension type Qualified Code(s): I95.9 - Hypotension, unspecified
--- NOTE | 2020-01-20 16:43 | Ultrasound Report ---
US extremity non-vascular ltd CLINICAL HISTORY: left lower extremity - r/o abscess pain. Edema. COMPARISON STUDY: No previous studies for comparison. FINDINGS: Findings of generalized soft tissue edematous change throughout the left lower extremity. N o evidence for well-defined drainable abscess or collection. IMPRESSION: 1. Generalized soft tissue edema of the left calf 2. No evidence for drainable abscess or collection. ACT 112: Negative or not required by law. The above report was generated using voice recognition software. It may contain grammatical, syntax or spelling errors. Electronically signed by: Scott Cai M.D. 01/20/2020 4:42 PM
[2020-01-20] MEDS ORDERED: PIPERACILL/TAZOBAC CONSULT ACTIVE PRN (16:45)
[2020-01-20] MEDS ORDERED: cephALEXin 500 MG CAP PO SCH (17:00)
[2020-01-20] MEDS ORDERED: PIPERACILLIN/TAZOBACTAM 4.5 GM in DEXTROSE 5% 100 ML IV ONE (18:00)
[2020-01-20] MEDS ORDERED: LINEZOLID 600 MG/300 ML D5W IV SCH (18:00)
[2020-01-20] MEDS: LINEZOLID 600 MG/300 ML BAG IV SCH (19:35)
[2020-01-20] MEDS: TRAZODONE HCL 50 MG TAB PO SCH (20:19)
[2020-01-20] MEDS: MELATONIN 3 MG TAB PO SCH (20:19)
[2020-01-20] MEDS ORDERED: DOXYCYCLINE HYCLATE 100 MG CAP PO SCH (21:00)
[2020-01-20] MEDS: ACETAMINOPHEN 325 MG TAB PO PRN (23:30)
[2020-01-20] MEDS: PIPERACILLIN/TAZOBACTAM 4.5 GM in DEXTROSE 5% 100 ML IV SCH (23:30)
[2020-01-21] MEDS: LINEZOLID 600 MG/300 ML BAG IV SCH ×2 (05:44→20:44)
[2020-01-21] MEDS: PIPERACILLIN/TAZOBACTAM 4.5 GM in DEXTROSE 5% 100 ML IV SCH ×2 (07:30→16:50)
[2020-01-21] MEDS: PRAVASTATIN SOD 20 MG TAB PO SCH (08:13)
[2020-01-21] MEDS: ASPIRIN 325 MG ECTAB PO SCH (08:13)
[2020-01-21] MEDS: CHOLECALCIFEROL 1,000 UNITS 25 MCG TAB PO SCH (08:13)
[2020-01-21] MEDS: ENOXAPARIN INJ 40 MG/0.4 ML SYR SQ SCH (08:14)
[2020-01-21 09:03] LABS: Basophils # (auto) 0.04 K/uL (0-0.2); Basophils % (auto) 0.5 %; Eosinophils # (auto) 0.33 K/uL (0-0.5); Eosinophils % (auto) 4.3 %; Hematocrit (blood only) 36.7 % (42-52); Hemoglobin 11.8 g/dL (14.0-18.0); Immature Granulocytes % (auto) 3.9 %; Lymphocytes # (auto) 1.26 K/uL (1.2-3.4); Lymphocytes % (auto) 16.5 %; Mean Corpuscular Hemoglobin 29.8 pg (25-34); Mean Corpuscular Hgb Conc 32.2 g/dL (32-36); Mean Corpuscular Volume 92.7 fL (80-100); Mean Platelet Volume 9.7 fL (7.4-10.4); Monocytes # (auto) 0.52 K/uL (0.11-0.59); Monocytes % (auto) 6.8 %; Neutrophils # (auto) 5.19 K/uL (1.4-6.5); Platelet Count 248 K/uL (130-400); RDW Standard Deviation 47.7 fL (36.4-46.3); Red Blood Count 3.96 M/uL (4.7-6.1); White Blood Count 7.64 K/uL (4.8-10.8)
[2020-01-21] MEDS: DOXAZosin MESYLATE TAB 2 MG TAB PO SCH ×2 (09:26→21:02)
[2020-01-21 09:34] LABS: Albumin Level 2.5 gm/dl (3.4-5.0); BUN Creatinine Ratio 8.8 (10-20); Calcium 9.2 mg/dl (8.5-10.1); Creatinine Clr Calc Pharmacy 101.7 ml/min; Est GFR (Non-African American) 65.6; Potassium 4.1 mmol/L (3.5-5.1)
[2020-01-21 09:37] LABS: Albumin Globulin Ratio 0.5 (0.9-2); Bilirubin,Total 0.6 mg/dl (0.2-1); Globulin 5.1 gm/dl (2.5-4.0); Total Protein 7.6 gm/dl (6.4-8.2)
[2020-01-21] MEDS: OXYCODONE HCL IR 5 MG TAB (IMMEDIATE RELEASE) PO PRN (12:27)
--- NOTE | 2020-01-21 13:46 | Ultrasound Report ---
US extremity non-vascular ltd CLINICAL HISTORY: worsening cellulitis pain. Infection. COMPARISON STUDY: No previous studies for comparison. FINDINGS: Ultrasonic evaluation of the region of pain/edema of the calf demonstrates moderately edema tous soft tissue. No evidence for abscess or collection bile sent criteria. IMPRESSION: Generalized soft tissue edema at the site of clinically palpable edema/pain. No evidence for well-defined abscess or drainable collection. ACT 112: Negative or not required by law. The above report was generated using voice recognition software. It may contain grammatical, syntax or spelling errors. Electronically signed by: Scott Cai M.D. 01/21/2020 1:45 PM
--- NOTE | 2020-01-21 18:22 | Hospitalist Progress Note ---
Date of Service January 21, 2020 Assessment & Plan (1) Acute respiratory failure: Pt presented with acute respiratory failure that is multifactoral, likely influenced by sepsis from cellulitis,, his respiratory failure likely with combination of his septic syndrome is improving. Ejection fraction on echo does not support any diagnosis of heart failure and heart failure has been ruled out. CTA 01/15/20 IMPRESSION: 1. Cardiomegaly without acute aortic pathology or evidence of pulmonary throm boembolic disease. 2. Bronchial wall thickening suggests bronchitis versus reactive airway disease with mild associated tracheobronchial secretions. 3. Minimal subsegmental bibasilar atelectasis. No airspace consolidation typical for pneumonia. 4. Hepatomegaly with hepatic steatosis. On RA. Will need 2 step before discharge.Overnight pulse ox with 18 minutes of desaturation events. Will need nocturnal O2 (2) Cellulitis of left leg: - Likely cause of hypotension as sepsis source -Patient improved with Zosyn and Vanco initially - Transitioned to oral Augmentin in the evening of 01/17 but then with worsening cellulitis and fever 01/19. Continue IV linezolid to cover MRSA and Zosyn - Wound consulted for lower extremity ulcerations may benefit from outpatient referral LE doppler 01/14 - no sonographic evidence of deep venous thrombosis identified in the left lower extremity Doppler 01/19 without abscess Doppler 01/20 with abscess BC ngtd (3) Elevated troponin: Likely demand ischemia from hypotension and sepsis on presentation - troponin increased in the setting of low blood pressure and sepsis - No acute changes on EKG, no regional wall motion abnormalities on echocardiogram Continue ASA - increased to 325 mg daily from 81 mg (4) Hypotension: - Likely secondary to cellulitis Doxazosin resumed (5) HLD (hyperlipidemia): - Cont pravastatin 20 mg daily, (6) Morbid obesity with BMI of 45.0-49.9, adult: - Diet and exercise education needs to be reiterated throughout admission and on discharge Educated patient on the obesity hypoventilation syndrome and sleep apnea which may impact his lower extremity swelling hypertension. Will need sleep study in follow up Overnight pulse ox reveals need for O2 (7) Venous ulcer of left lower extremity without varicose veins: - Wound consults for chronic ulcerations - likely source of cellulitis - Chronic, followed by wound care may benefit from outpatient referral to wound care - No dvt of the left lower extremity on US (8) Acute kidney injury: Resolvedlikely was a combination of low blood pressure and atn and possibly lasix administration (9) Insomnia: Continue trazodone and melatonin (10) DVT prophylaxis: - Lovenox subq CODE: Full Dispo: Patient is not willing to go to rehab, would like to go home with home health. Given his worsening picture, may need a few more nights in the hospital Admission and Anticipated Discharge Date Admission Date: January 15, 2020 Subjective Mr. Perez is continuing to experience pain in his left ankle at the point of his cellulitis. He feels his breathing has improved. No other complaints ROS Constitutional: no chills, aches, sweats or fever Respiratory: no sob,cough, sputum, or wheezing Cardiac: no chest pain, palpitations, edema, orthopnea or lightheadedness GI: no abdominal pain, nausea, vomiting, diarrhea or constipation : no dysuria or hesitancy Extremities: no joint pain or weakness Skin: see HPI All other systems reviewed and negative Physical Exam Physical Exam: General: no distress Eyes: normal inspection, PERLL Respiratory: chest non tender, clear to auscultation, normal breath sounds, no respiratory distress, no accessory muscle use Cardiac: regular rate and rhythm, no rub or gallop, no murmur, no edema, no jvd GI/: active bowel sounds, no abd pain or tenderness, soft, non distended Extremities: normal range of motion, normal strength, non tender Neuro/Psych: alert and oriented x 3, normal mood and affect Skin: normal color, dry, increased erythema and edema of the left leg Results & Data Results & Data ([facility]) Vital Signs (Past 12 Hours) Vital Signs Temp Pulse Pulse Pulse Pulse Resp Resp 01/21/20 17:00 37.1 C 01/21/20 15:14 36.8 C 74 18 01/21/20 09:19 80 79 82 22 01/21/20 07:38 37.3 C 70 18 Resp Resp BP Pulse Ox Pulse Ox Pulse Ox Pulse Ox 01/21/20 17:00 01/21/20 15:14 146/82 H 94 01/21/20 09:19 20 18 94 95 95 01/21/20 07:38 171/95 H 93 PG Care Time/CCT Total # of Minutes Spent Total Time Spent with Patient: Total time spent is greater than 50% in coordination of care (as documented) at patient's floor/unit and/or counseling patient: Coding Level of Care Code 24183 Subseq Hosp Care Lvl 3 Diagnoses Acute respiratory failure J96.00 Cellulitis of left leg L03.116 Elevated troponin R79.89 Hypotension I95.9 Hypotension type: unspecified hypotension type HLD (hyperlipidemia) E78.5 Morbid obesity with BMI of 45.0-49.9, adult E66.01; Z68.42 Venous ulcer of left lower extremity without varicose veins I87.2; L97.929 Acute kidney injury N17.9 Insomnia G47.00 DVT prophylaxis Z29.9 (1) Hypotension Hypotension type: unspecified hypotension type Qualified Code(s): I95.9 - Hypotension, unspecified
[2020-01-21] MEDS: MELATONIN 3 MG TAB PO SCH (21:02)
[2020-01-21] MEDS: TRAZODONE HCL 50 MG TAB PO SCH (21:02)
[2020-01-21] MEDS: EUCERIN CR 120 GM JAR EXT PRN (22:03)
[2020-01-22] MEDS: PIPERACILLIN/TAZOBACTAM 4.5 GM in DEXTROSE 5% 100 ML IV SCH ×3 (00:05→16:30)
[2020-01-22] MEDS: OXYCODONE HCL IR 5 MG TAB (IMMEDIATE RELEASE) PO PRN ×2 (04:18→12:35)
[2020-01-22] MEDS: LINEZOLID 600 MG/300 ML BAG IV SCH (06:11)
[2020-01-22] MEDS: EUCERIN CR 120 GM JAR EXT PRN ×2 (06:17→20:58)
[2020-01-22 06:44] LABS: Basophils # (auto) 0.04 K/uL (0-0.2); Basophils % (auto) 0.5 %; Eosinophils # (auto) 0.38 K/uL (0-0.5); Eosinophils % (auto) 4.4 %; Hematocrit (blood only) 38.3 % (42-52); Hemoglobin 11.9 g/dL (14.0-18.0); Immature Granulocytes # (auto) 0.14 K/uL (0.00-0.02); Immature Granulocytes % (auto) 1.6 %; Lymphocytes # (auto) 1.56 K/uL (1.2-3.4); Lymphocytes % (auto) 17.9 %; Mean Corpuscular Hgb Conc 31.1 g/dL (32-36); Mean Corpuscular Volume 93.4 fL (80-100); Mean Platelet Volume 9.5 fL (7.4-10.4); Monocytes # (auto) 0.73 K/uL (0.11-0.59); Monocytes % (auto) 8.4 %; Neutrophils # (auto) 5.86 K/uL (1.4-6.5); Neutrophils % (auto) 67.2 %; Platelet Count 309 K/uL (130-400); RDW Coefficient of Variation 14.1 % (11.5-14.5); RDW Standard Deviation 48.1 fL (36.4-46.3); White Blood Count 8.71 K/uL (4.8-10.8)
[2020-01-22 07:17] LABS: Calcium 9.1 mg/dl (8.5-10.1); Creatinine Clr Calc Pharmacy 100.9 ml/min; Est GFR (African American) 75.3; Est GFR (Non-African American) 64.9; Potassium 4.2 mmol/L (3.5-5.1)
[2020-01-22] MEDS: ASPIRIN 325 MG ECTAB PO SCH (08:46)
[2020-01-22] MEDS: DOXAZosin MESYLATE TAB 2 MG TAB PO SCH ×2 (08:46→20:57)
[2020-01-22] MEDS: PRAVASTATIN SOD 20 MG TAB PO SCH (08:46)
[2020-01-22] MEDS: CHOLECALCIFEROL 1,000 UNITS 25 MCG TAB PO SCH (08:46)
[2020-01-22] MEDS: ENOXAPARIN INJ 40 MG/0.4 ML SYR SQ SCH (08:47)
[2020-01-22] MEDS ORDERED: OPTIRAY 320 125ml IV PRN (10:13)
--- NOTE | 2020-01-22 10:36 | CT Scan Report ---
CT tib/fib LT w con HISTORY: 59 years-old Male cellulitis look for abscess or gas acute soft tissue swelling with cellul itis changes of the left lower leg COMPARISON: Lower extremity ultrasound 01/21/2020, duplex venous Doppler study 01/15/2020 TECHNIQUE: Multiple axial CT images of the left tibia and fibula were obtained following the intraven ous administration of 120 mL Optiray 320. A dose lowering technique was used consistent with the prin cipals of ALA. FINDINGS: There is moderate diffuse subcutaneous edema with skin thickening noted throughout the left lower leg . Additionally, superficial venous varices are also noted throughout the thigh and lower leg. Partial ly imaged subcutaneous edema and skin thickening of the right lower leg. Small left knee joint effusi on. No drainable fluid collection to suggest abscess. There are a few scattered nonspecific subcutane ous calcifications. Mild arterial calcifications. No arterial or venous occlusion identified. The mus culature appears unremarkable. The tendons and ligaments are not well assessed by CT technique. No gr oss tendinous or ligamentous injury identified. No subcutaneous or deep tissue air to suggest fasciit is. 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 Mild to mode rate osteoarthritis of the medial compartment of the knee. No acute fracture, dislocation, osseous er osion or suspicious bone lesion. No osteochondral defects. No intra-articular loose body. Moderate si zed Achilles these ill-defined of the calcaneus. IMPRESSION: 1. No acute fracture or dislocation. 2. Moderate diffuse subcutaneous edema and skin thickening of the lower leg, ankle and imaged foot kapadia ggestive of cellulitis, venous stasis or lymphedema. No drainable fluid collection to suggest abscess . 3. No subcutaneous or deep tissue air to suggest fasciitis. 4. Mild degree of venous varicosities noted within the left lower extremity. ACT 112: Negative or not required by law. The above report was generated using voice recognition software. It may contain grammatical, syntax o r spelling errors. Electronically signed by: Williams Santacruz M.D. 01/22/2020 10:34 AM
[2020-01-22] MEDS ORDERED: VANCOMYCIN CONSULT ACTIVE PRN (12:35)
[2020-01-22] MEDS ORDERED: VANCOMYCIN HCL 1,000 MG in SODIUM CHLORIDE 0.9% 250 ML IV SCH (12:45)
[2020-01-22] MEDS ORDERED: DAPTOMYCIN CONSULT ACTIVE PRN (13:07)
--- NOTE | 2020-01-22 14:09 | Orthopedic Consultation ---
Date of Consultation January 22, 2020 Assessment & Plan (1) Cellulitis of left leg: The ultrasound of his leg is negative for DVT. They have been negative for any sort of fluid collection that would need to be drained. He also had a CT scan performed today which was negative for fluid collection. I do not feel that there is any evidence for a septic joint. I do not feel that he has compartment syndrome. I think a lot of his symptoms are simply due to fairly profound cellulitis and continued edema but I do not have any findings on his his physical exam that make me concerned that he is developing compartment syndrome and any neurologic symptoms he may been having seem to have resolved. I do not see any need for surgical intervention at this time. I recommend continuing with wound care team's recommendation for treatment of his medial malleolus ulcer Present on Admission?: Yes History of Present Illness Reason for Consultation: Left leg cellulitis Attending Physician: Corby Peguero MD History of Present Illness This is a 59 yo M with PMHx of HTN, HLD, morbid obesity with BMI of 45, chronic venous stasis ulcers on bilateral lower extremities w/ history of vein stripping over 10 years ago. He presented to the hospital with creasing shortness of breath as well as increasing pain redness in the left lower extremity. Even having difficulty in bearing weight on the left ankle. When he initially presented to the emergency room had erythema extending up into the region of the groin. He has a known ulcer on the region of the medial malleolus on this limb which she states was split open by his puppy trying to crawl up his leg. Currently complains of pain in the left leg. Denies any numbness or tingling in the leg currently Allergies Allergy/AdvReac Type Severity Reaction Status Date / Time No Known Allergies Allergy Unverified 01/15/20 14:26 Home Medications Home Medications Medication Instructions Recorded Confirmed Type amlodipine 10 mg PO DAILY@0701/15/20 01/15/20 History aspirin 81 mg PO DAILY@69901/15/20 01/15/20 History cholecalciferol (vitamin D3) 125 mcg PO DAILY@69901/15/20 01/15/20 History [Vitamin D3] doxazosin 2 mg PO BID 01/15/20 01/15/20 History furosemide 20 mg PO BID 01/15/20 01/15/20 History lisinopril 20 mg PO BID 01/15/20 01/15/20 History potassium chloride 10 meq PO DAILY@0700 01/15/20 01/15/20 History pravastatin 20 mg PO DAILY@0700 01/15/20 01/15/20 History Patient History Medical History Hypertension Social History Preferred Language: Croatian Communication Ability: Effective 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 There are ink matthews outlining his presentation for cellulitis that was up near the groin. This is improved and is now no longer anywhere in the thigh it is distal to the knee. He is tender to palpation along the calf both anteriorly as well as posteriorly. Fairly significant tight edema below the level of the knee. He still has a pitting edema over the knee itself. He is able to flex and extend the knee with pain the locates more to the region of the lower leg and then tightness then from actual motion of the knee itself. I do not generate a lot of pain with passive range of motion of the knee or with palpation of the knee. He states he has normal sensation distally in the foot. I am able to passively dorsiflex and plantarflex the toes without causing any pain. More extremes dorsiflexion plantarflexion of the ankle cause some pain he locates to the calf more with stretching than with anything. There is wound that is been dressed by the wound care with silver dressing. No significant drainage is appreciated from this. His calf is soft and compressible. Results & Data ([facility]) Vital Signs (Past 12 Hours) Vital Signs Temp Pulse Resp BP Pulse Ox 01/22/20 07:38 36.9 C 65 16 135/83 92
[2020-01-22] MEDS: DAPTOmycin 650 MG in SYRINGE 0 ML IV SCH (14:15)
--- NOTE | 2020-01-22 16:37 | Dermatology Consultation ---
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 While the cause is not specifically clear, this can be associated with with autoimmune diseases, drug reactions, infections, or malignancy. In his case, most likely trigger would be either his cellulitis or medication. Given the timing of onset, I do wonder if Linezolid may have been the trigger. At this point, I would recommend the followin) Recheck UA. Check C3, C4, CH50 2) Start Cetirizine 10mg daily. 3) If there is no contraindication, NSAID's can be helpful in the short-term to help with pain that can be associated with the lesions. I will leave this to the discretion of the primary team. 4) Monitor for worsening over the next 24 hours now that Linezolid as been discontinued. If there is significant worsening, I would recommend starting systemic steroids (i.e. oral prednisone). 5) Defer biopsy at this time as I do not feel it will likely alter management. 6) Thanks for the consult. Will follow for progress. Present on Admission?: No History of Present Illness Reason for Consultation: Rash Requesting Physician: Kacie Aquino Attending Physician: Corby Peguero MD History of Present Illness Patient is a 59-year-old male initially admitted to [facility] on 01/15/2020 for ARDS secondary to suspected cellulitis of the left lower leg. He has a reported history of chronic venous stasis ulcerations of the bilateral lower legs with history of prior vein stripping over 10 years ago. He was initially started on broad-spectrum antibiotic with IV Vancomycin and Zosyn. This apparently led to significant improvement, leading to transition to oral Augmentin on 01/18/2020. Unfortunately, he seemed to worsen over the next 48 hours and redeveloped fever with increased redness/swelling of the left lower leg. His antibiotic regimen was then changed to IV Linezolid and Zosyn. Last evening it was noted that he was developing a new rash on the proximal thighs extending to the buttocks/lower back. Patient notes that the lesions tend to be somewhat painful with pressure. He denies any significant itching. Due to concern for a possible allergic reaction, Linezolid was changed to IV Daptomycin today. Patient is not receiving any specific treatment for the rash this point in time. He otherwise notes that he is feeling much better than when he initially was admitted. He has been afebrile for the past 36 hours. He does still complain of swelling and redness of the left lower extremity. No other skin complaints. Allergies Allergy/AdvReac Type Severity Reaction Status Date / Time No Known Allergies Allergy Unverified 01/15/20 14:26 Home Medications Home Medications Medication Instructions Recorded Confirmed Type amlodipine 10 mg PO DAILY@0700 01/15/20 01/15/20 History aspirin 81 mg PO DAILY@0700 01/15/20 01/15/20 History cholecalciferol (vitamin D3) 125 mcg PO DAILY@0701/15/20 01/15/20 History [Vitamin D3] doxazosin 2 mg PO BID 01/15/20 01/15/20 History furosemide 20 mg PO BID 01/15/20 01/15/20 History lisinopril 20 mg PO BID 01/15/20 01/15/20 History potassium chloride 10 meq PO DAILY@0700 01/15/20 01/15/20 History pravastatin 20 mg PO DAILY@0700 01/15/20 01/15/20 History Patient History Medical History Hypertension Social History Preferred Language: Croatian Communication Ability: Effective 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 Beliefs That Will Affect Care: None marital status: / Current Living Situation: Family Feels Safe at Home: Yes Smoking Status: Never smoker Hx Alcohol Use: Yes Alcohol type: beer Hx Substance Use: No Review of Systems Constitutional: no fever and no chills Eyes: no eye pain Ear, Nose, Mouth, Throat: no mouth lesions Respiratory: + dyspnea on exertion Gastrointestinal: no nausea, no vomiting and no diarrhea/loose stools Genitourinary: no dysuria and no hematuria Musculoskeletal: + joint pain Integumentary: as per Subjective / HPI Physical Exam Physical Exam: General Appearance: Well Developed, Well Nourished and In no acute distress Psych: Alert, Oriented and Appropriate Skin Type: Skin Type: 2 Scalp/Hair: No abnormalities noted Face: No abnormalities noted Eyelids/Ocular Mucosa: No abnormalities noted Lips/Oral Mucosa: No abnormalities noted Neck: No abnormalities noted Right Lower Extremity: + tender, erythematous, slightly indurated papules and wheals coalescing in the urticarial plaques on the proximal thigh; sole clear Left Lower Extremity: + tender, erythematous, slightly indurated papules and wheals coalescing in the urticarial plaques on the proximal thigh; sole clear; +marked 4+ pitting edema with associated erythema/warmth on the lower leg Back: + tender, erythematous, slightly indurated papules and wheals on the right lateral upper back, left lateral upper back Buttocks/Groin/Genitalia: Not examined Right Upper Extremity: + tender, erythematous, slightly indurated papules and wheals on the posterior upper arm Left Upper Extremity: + tender, erythematous, slightly indurated papules and wheals on the posterior upper arm Chest/Breast/Axillae: No abnormalities noted Abdomen: No abnormalities notes Results & Data ([facility]) Vital Signs (Past 12 Hours) Vital Signs Temp Pulse Resp BP Pulse Ox 01/22/20 15:54 36.7 C 64 18 146/89 H 95 01/22/20 07:38 36.9 C 65 16 135/83 92 Laboratory Results Reviewed in chart. 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
[2020-01-22] MEDS ORDERED: CETIRIZINE HCL 10 MG TABLET PO ONE (17:11)
--- NOTE | 2020-01-22 17:54 | Hospitalist Progress Note ---
Date of Service January 22, 2020 Assessment & Plan (1) Acute respiratory failure: Pt presented with acute respiratory failure that is multifactoral, likely influenced by sepsis from cellulitis, his respiratory failure likely with combination of his septic syndrome is improving. Ejection fraction on echo does not support any diagnosis of heart failure and heart failure has been ruled out. CTA 01/15/20 IMPRESSION: 1. Cardiomegaly without acute aortic pathology or evidence of pulmonary thromb oembolic disease. 2. Bronchial wall thickening suggests bronchitis versus reactive airway disease with mild associated tracheobronchial secretions. 3. Minimal subsegmental bibasilar atelectasis. No airspace consolidation typical for pneumonia. 4. Hepatomegaly with hepatic steatosis. On RA. Will need 2 step before discharge.Overnight pulse ox with 18 minutes of desaturation events. Will need nocturnal O2 but this will need repeated before discharge (2) Cellulitis of left leg: Cotinues to worsen - Likely cause of hypotension as sepsis source -Patient improved with Zosyn and Vanco initially but worsened after transitioning to Augment. Placed on Linezolid and Zosyn with worsening rash. 01/21 with new rash. Linezolid stopped and daptomycin started as it is easier to dose given patient's size than vancomycin. Continue Zosyn - Wound consulted for lower extremity ulcerations may benefit from outpatient referral LE doppler 01/14 - no sonographic evidence of deep venous thrombosis identified in the left lower extremity Doppler 01/19 without abscess Doppler 01/20 without abscess, CT 01/21 without abscess or deep tissue air BC ngtd, recultured Consulted ortho out of concern for compartment syndrome due to patients pain and paresthesia - did not feel patient was suffering from this (3) Rash: Consulted Dr. Interiano from dermatology, recommendations as follows: -Recheck UA. Check C3, C4, CH50 - Start Cetirizine 10mg daily. - Monitor for worsening over the next 24 hours now that Linezolid as been di scontinued. If there is significant worsening, I would recommend starting systemic steroids (i.e. oral prednisone). Continue oxycodone for pain. Will avoid NSAIDs as patient is on 325 of ASA daily for elevated troponin (4) Elevated troponin: Likely demand ischemia from hypotension and sepsis on presentation - troponin increased in the setting of low blood pressure and sepsis - No acute changes on EKG, no regional wall motion abnormalities on echocardiogram Continue ASA - increased to 325 mg daily from 81 mg (5) Hypotension: - Likely secondary to cellulitis Doxazosin resumed (6) HLD (hyperlipidemia): - Cont pravastatin 20 mg daily, (7) Morbid obesity with BMI of 45.0-49.9, adult: - Diet and exercise education needs to be reiterated throughout admission and on discharge Educated patient on the obesity hypoventilation syndrome and sleep apnea which may impact his lower extremity swelling hypertension. Will need sleep study in follow up Overnight pulse ox reveals need for O2 (8) Venous ulcer of left lower extremity without varicose veins: - Wound consults for chronic ulcerations - likely source of cellulitis - Chronic, followed by wound care may benefit from outpatient referral to wound care - No dvt of the left lower extremity on US (9) Acute kidney injury: Resolvedlikely was a combination of low blood pressure and atn and possibly lasix administration (10) Insomnia: Continue trazodone and melatonin (11) DVT prophylaxis: - Lovenox subq CODE: Full Dispo: Patient is not willing to go to rehab, would like to go home with home health. At present discharge date is unknown as clinical picture continues to worsen Admission and Anticipated Discharge Date Admission Date: January 15, 2020 Subjective Mr. Perez's cellulitis continues to worsen. He has a new rash on his other leg that appears urticarial on his knee and becomes a smaller papular rash up the side of his right leg to his back. It is not pruritic and is painful. Patient is very concerned about his leg. He reports some numbness at times and feeling like it is cold. ROS Constitutional: no chills, aches, sweats or fever Respiratory: no sob,cough, sputum, or wheezing Cardiac: no chest pain, palpitations, edema, orthopnea or lightheadedness GI: no abdominal pain, nausea, vomiting, diarrhea or constipation : no dysuria or hesitancy Extremities: no joint pain or weakness Skin: no rash All other systems reviewed and negative Physical Exam Physical Exam: General: no distress Eyes: normal inspection, PERLL Respiratory: chest non tender, clear to auscultation, normal breath sounds, no respiratory distress, no accessory muscle use Cardiac: regular rate and rhythm, no rub or gallop, no murmur, no jvd GI/: active bowel sounds, no abd pain or tenderness, soft, non distended Extremities: normal range of motion, normal strength, non tender Neuro/Psych: alert and oriented x 3, normal mood and affect Skin: left leg erythema, hot to touch, significant pitting edema left leg, right leg with urticaria type rash over the knee and smaller papular rash up right leg around back that is non blanching and tender to touch Results & Data Results & Data ([facility]) Vital Signs (Past 12 Hours) Vital Signs Temp Pulse Resp BP Pulse Ox 01/22/20 15:54 36.7 C 64 18 146/89 H 95 01/22/20 07:38 36.9 C 65 16 135/83 92 PG Care Time/CCT Total # of Minutes Spent Total Time Spent with Patient: Total time spent is greater than 50% in coordination of care (as documented) at patient's floor/unit and/or counseling patient: Coding Level of Care Code 51743 Subseq Hosp Care Lvl 3 Diagnoses Acute respiratory failure J96.00 Cellulitis of left leg L03.116 Rash R21 Elevated troponin R79.89 Hypotension I95.9 Hypotension type: unspecified hypotension type HLD (hyperlipidemia) E78.5 Morbid obesity with BMI of 45.0-49.9, adult E66.01; Z68.42 Venous ulcer of left lower extremity without varicose veins I87.2; L97.929 Acute kidney injury N17.9 Insomnia G47.00 DVT prophylaxis Z29.9 (1) Hypotension Hypotension type: unspecified hypotension type Qualified Code(s): I95.9 - Hypotension, unspecified
[2020-01-22 20:23] LABS: Appearance Urine Clear (Clear); Bilirubin Urine Negative (Negative); Blood Urine Negative (Negative); Color Urine Dark Yellow; Glucose Urine UA Negative (Negative); Ketones Urine Negative (Negative); Leukocyte Esterase Urine Negative (Negative); Nitrite Urine Negative (Negative); Protein Urine Negative (Negative); Specific Gravity Urine 1.034 (1.000-1.030); Urobilinogen Urine Negative (Negative)
[2020-01-22] MEDS: MoRPHine SULFATE 2 MG/ML CARP IV PRN (20:41)
[2020-01-22] MEDS: ACETAMINOPHEN 325 MG TAB PO PRN (20:51)
[2020-01-22] MEDS: MELATONIN 3 MG TAB PO SCH (20:57)
[2020-01-22] MEDS: TRAZODONE HCL 50 MG TAB PO SCH (20:57)
[2020-01-23] MEDS: PIPERACILLIN/TAZOBACTAM 4.5 GM in DEXTROSE 5% 100 ML IV SCH ×3 (00:22→15:30)
[2020-01-23 07:22] LABS: Basophils # (auto) 0.03 K/uL (0-0.2); Basophils % (auto) 0.4 %; Eosinophils # (auto) 0.29 K/uL (0-0.5); Eosinophils % (auto) 3.4 %; Hematocrit (blood only) 35.8 % (42-52); Hemoglobin 11.2 g/dL (14.0-18.0); Immature Granulocytes # (auto) 0.06 K/uL (0.00-0.02); Immature Granulocytes % (auto) 0.7 %; Lymphocytes # (auto) 1.29 K/uL (1.2-3.4); Lymphocytes % (auto) 15.3 %; Mean Corpuscular Hemoglobin 29.2 pg (25-34); Mean Corpuscular Hgb Conc 31.3 g/dL (32-36); Mean Corpuscular Volume 93.2 fL (80-100); Mean Platelet Volume 9.3 fL (7.4-10.4); Monocytes # (auto) 0.54 K/uL (0.11-0.59); Monocytes % (auto) 6.4 %; Neutrophils % (auto) 73.8 %; Platelet Count 280 K/uL (130-400); RDW Coefficient of Variation 14.3 % (11.5-14.5); RDW Standard Deviation 48.6 fL (36.4-46.3); Red Blood Count 3.84 M/uL (4.7-6.1); White Blood Count 8.41 K/uL (4.8-10.8)
[2020-01-23 08:00] LABS: Albumin Level 2.3 gm/dl (3.4-5.0); BUN Creatinine Ratio 8.1 (10-20); Calcium 8.8 mg/dl (8.5-10.1); Creatinine Clr Calc Pharmacy 88.5 ml/min; Est GFR (African American) 64.3; Est GFR (Non-African American) 55.5; Potassium 4.1 mmol/L (3.5-5.1)
[2020-01-23 08:03] LABS: Albumin Globulin Ratio 0.5 (0.9-2); Bilirubin,Total 0.4 mg/dl (0.2-1); Globulin 5.1 gm/dl (2.5-4.0); Total Protein 7.4 gm/dl (6.4-8.2)
[2020-01-23] MEDS ORDERED: predniSONE 20 MG TAB PO STA (08:08)
[2020-01-23] MEDS: ASPIRIN 325 MG ECTAB PO SCH (08:44)
[2020-01-23] MEDS: PRAVASTATIN SOD 20 MG TAB PO SCH (08:44)
[2020-01-23] MEDS: CHOLECALCIFEROL 1,000 UNITS 25 MCG TAB PO SCH (08:45)
[2020-01-23] MEDS: DOXAZosin MESYLATE TAB 2 MG TAB PO SCH (08:46)
[2020-01-23] MEDS: ENOXAPARIN INJ 40 MG/0.4 ML SYR SQ SCH (08:51)
[2020-01-23] MEDS ORDERED: CETIRIZINE HCL 10 MG TABLET PO SCH (09:00)
[2020-01-23 13:10] LABS: Lyme Ab IgG w/WB Rflx Negative (Negative); Lyme Ab IgM w/WB Rflx Negative (Negative)
[2020-01-23] MEDS: DAPTOmycin 650 MG in SYRINGE 0 ML IV SCH (14:05)
--- NOTE | 2020-01-23 14:23 | Discharge Summary ---
Date of Service January 23, 2020 Admission HPI Per Admitting Provider This is a 59 yo M with PMHx of HTN, HLD, morbid obesity with BMI of 45, chronic venous stasis ulcers on bilateral lower extremities w/ history of vein stripping over 10 years ago, who presents with acute worsening of breath which started on Sunday. Yesterday, he was dyspneic with minimal ADLs, fever of 102, sweats, chills, dry cough and diarrhea. He also noticed increased redness of his left leg which started at his foot and has seemed to work its way up his leg throughout the day today. It is extremely painful for him to put weight on the left foot, and is unable to walk on it. It is much more swollen than normal, despite chronic venous ulcerations. 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 He typically travels up and down the [facility], and on Sunday he was in [place] for a drop off. He is a sedentary individual, and has been even more so since worsening SOB in the past week. Denies sick contacts. Lives at home with his mother. Here in the ER the patient is found to be hypotensive with blood pressure of 90s/50s, T-max = 37.6, and requiring 2 L of O2 via NC and sats of 95%. Left lower extremity is hot, red and tender to touch. Principal Diagnosis Left lower leg cellulitis Discharge Exam Constitutional WD/WN, vitals as above Respiratory normal respiratory effort, lungs clear to auscultation Cardiovascular RRR, no murmur, no edema Gastrointestinal (Abdomen) Inspection/Auscultation: abdomen normal to inspection and normal bowel sounds; abdomen not distended Percussion/Palpation: abdomen soft; abdomen nontender Musculoskeletal no cyanosis or clubbing, extremities motor strength 5/5 Skin significant erythema an edema left leg from foot to mid thigh. Urticaria over legs and back and arms Neurologic moves all extremities and awake Psychiatric A+Ox3, euthymic affect Discharge Data Allergies Allergy/AdvReac Type Severity Reaction Status Date / Time No Known Allergies Allergy Unverified 01/15/20 14:26 Consultations 01/15/20 16:59 ED Decision to Admit Stat 01/15/20 22:23 Consult Case Management - Discharge Planning Routine 01/22/20 12:23 Consult Orthopedic Surgery Routine 01/22/20 15:05 Consult Dermatology Routine Ordered Studies 01/15/20 13:42 US venous doppler LE LT Stat 01/15/20 17:59 CT angio chest PE protocol Stat 01/20/20 15:34 US extremity non-vascular ltd Routine 01/21/20 13:30 US extremity non-vascular ltd Routine 01/22/20 09:33 CT tib/fib LT w con Stat Hospital Course (1) Acute respiratory failure: Pt presented with acute respiratory failure that is multifactoral, likely influenced by sepsis from cellulitis, his respiratory failure likely with combination of his septic syndrome is improving. Ejection fraction on echo does not support any diagnosis of heart failure and heart failure has been ruled out. CTA 01/15/20 IMPRESSION: 1. Cardiomegaly without acute aortic pathology or evidence of pulmonary thromboembolic disease. 2. Bronchial wall thickening suggests bronchitis versus reactive airway disease with mild associated tracheobronchial secretions. 3. Minimal subsegmental bibasilar atelectasis. No airspace consolidation typical for pneumonia. 4. Hepatomegaly with hepatic steatosis. On RA. Will need 2 step before discharge.Overnight pulse ox with 18 minutes of desaturation events. Will need nocturnal O2 but this will need repeated before discharge Continue prn nebs for wheezing (2) Cellulitis of left leg: Continues to worsen - Likely cause of hypotension as sepsis source -Patient improved with Zosyn and Vanco initially but worsened after transitioning to Augmentin. Placed on Linezolid and Zosyn with worsening erythema. 01/21 with new rash. Linezolid stopped and daptomycin started as it is easier to dose given patient's size than vancomycin. Continued Zosyn - Wound consulted for lower extremity ulcerations may benefit from outpatient referral LE doppler 01/14 - no sonographic evidence of deep venous thrombosis identified in the left lower extremity Doppler 01/19 without abscess Doppler 01/[address] 01/21 without abscess or deep tissue air BC ngtd, recultured Consulted ortho out of concern for compartment syndrome due to patients pain and paresthesia - did not feel patient was suffering from this (3) Rash: Urticarial vasculitis Consulted Dr. Interiano from dermatology, recommendations as follows: -Rechecked UA - no apparent infection - Check C3, C4, CH50 - pending - Start Cetirizine 10mg daily. - initiated po prednisone as patient had significant worsening of rash today extending over both legs, back and on on arms (4) Elevated troponin: Likely demand ischemia from hypotension and sepsis on presentation - troponin increased in the setting of low blood pressure and sepsis - No acute changes on EKG, no regional wall motion abnormalities on echocardiogram Continue ASA - increased to 325 mg daily from 81 mg (5) Hypotension: - Likely secondary to cellulitis Doxazosin resumed (6) HLD (hyperlipidemia): - Cont pravastatin 20 mg daily, (7) Morbid obesity with BMI of 45.0-49.9, adult: - Diet and exercise education needs to be reiterated throughout admission and on discharge Educated patient on the obesity hypoventilation syndrome and sleep apnea which may impact his lower extremity swelling hypertension. Will need sleep study in follow up Overnight pulse ox reveals need for O2 (8) Venous ulcer of left lower extremity without varicose veins: - Wound consults for chronic ulcerations - likely source of cellulitis - Chronic, followed by wound care may benefit from outpatient referral to wound care - No dvt of the left lower extremity on US (9) Acute kidney injury: Resolvedlikely was a combination of low blood pressure and atn and possibly lasix administration (10) Insomnia: Continue trazodone and melatonin (11) DVT prophylaxis: - Lovenox subq CODE: Full Dispo: Transfer to [facility] Total Time Total Time Spent Total Time Spent (In Minutes): greater than 30 minutes Discharge Plan Discharge Items Patient Disposition: Transfer Acute Care Hospital Reason For Visit: DYSPNEA,HYPOXIA,CELLULITIS Discharge Diagnosis: Dyspnea, hypoxia, cellulitis Activity: Resume your previous activity Non-emergency contact: Primary Care Provider Call non-emergency contact if: you have any medication questions Follow-up/Referrals: Naren Oliva DO [Primary Care Provider] - Diet: Heart Healthy Addtl Attending Provider Instructions: (1) Acute respiratory failure: Pt presented with acute respiratory failure that is multifactoral, likely influenced by sepsis from cellulitis, his respiratory failure likely with [place] of his septic syndrome is improving. Ejection fraction on echo does not support any diagnosis of heart failure and heart failure has been ruled out. CTA 01/15/20 IMPRESSION: 1. Cardiomegaly without acute aortic pathology or evidence of pulmonary thromboembolic disease. 2. Bronchial wall thickening suggests bronchitis versus reactive airway disease with mild associated tracheobronchial secretions. 3. Minimal subsegmental bibasilar atelectasis. No airspace consolidation typical for pneumonia. 4. Hepatomegaly with hepatic steatosis. On RA. Will need 2 step before discharge.Overnight pulse ox with 18 minutes of desaturation events. Will need nocturnal O2 but this will need repeated before discharge (2) Cellulitis of left leg: Continues to worsen now with purpura type lesions in places over the cellulitis - Likely cause of hypotension as sepsis source -Patient improved with Zosyn and Vanco initially but worsened after transitioning to Augmentin. Placed on Linezolid and Zosyn with worsening erythema and edema. 01/21 with new urticarial type rash. Linezolid 01/21 stopped and daptomycin started as it is easier to dose given patient's size than vancomycin. 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 Worsening and painful Consulted Dr. Interiano from dermatology, recommendations as follows: -Rechecked UA - no apparent infection - Check C3, C4, CH50 - these are pending - Cetirizine 10mg daily. - Initiated 40 mg po prednisone today as rash has worsened and now extends over all limbs and lower back Lyme was negative (4) Elevated troponin: Likely demand ischemia from hypotension and sepsis on presentation - troponin increased in the setting of low blood pressure and sepsis - No acute changes on EKG, no regional wall motion abnormalities on echocardiogram Continue ASA - increased to 325 mg daily from 81 mg (5) Hypotension: - Likely secondary to cellulitis, now resolved Doxazosin resumed (6) HLD (hyperlipidemia): - Cont pravastatin 20 mg daily, (7) Morbid obesity with BMI of 45.0-49.9, adult: - Diet and exercise education needs to be reiterated throughout admission and on discharge Educated patient on the obesity hypoventilation syndrome and sleep apnea which may impact his lower extremity swelling hypertension. Will need sleep study in follow up Overnight pulse ox reveals need for O2 (8) Venous ulcer of left lower extremity without varicose veins: - Wound consults for chronic ulcerations - likely source of cellulitis - Chronic, followed by wound care may benefit from outpatient referral to wound care - No dvt of the left lower extremity on US (9) Acute kidney injury: Resolvedlikely was a combination of low blood pressure and atn and possibly lasix administration (10) Insomnia: Continue trazodone and melatonin (11) DVT prophylaxis: - Lovenox subq Pending Studies at Discharge: Yes Studies:: As above Stand-Alone Forms: My [facility] Skilled Items Patient informed of condition?: Yes DNR: No Discharge Level of Care: Other Communicable Disease: No Discharge Prognosis: Deteriorating Lines: Peripheral IV Urinary Catheter: No Medications and DC Order Prescriptions: New ipratropium-albuterol 0.5 mg-3 mg(2.5 mg base)/3 mL Solution For Nebulization 3 ml NEB Q4R PRN (Reason: wheezing) Qty: 15 RF: 0 trazodone 50 mg Tablet 50 mg PO HS Qty: 30 RF: 0 cetirizine 10 mg Tablet 10 mg PO QAM Qty: 30 RF: 0 melatonin 3 mg Tablet 3 mg PO HS Qty: 30 RF: 0 oxycodone 5 mg Tablet 10 mg PO Q6H PRN (Reason: pain) Qty: 30 RF: 0 enoxaparin 40 mg/0.4 mL Syringe 40 mg subcut QAM Qty: 4 RF: 0 morphine 2 mg/mL Syringe 2 mg IV Q4H PRN (Reason: pain) Qty: 30 RF: 0 piperacillin-tazobactam [Zosyn] 4.5 gram recon soln 4.5 gm IV Q8H Qty: 30 RF: 0 daptomycin 500 mg recon soln 650 mg IV DAILY Qty: 30 RF: 0 prednisone 20 mg tablet 40 mg PO DAILY Qty: 10 RF: 0 Continued potassium chloride 10 mEq Capsule, Extended Release 10 meq PO DAILY@0700 RF: 0 lisinopril 20 mg Tablet 20 mg PO BID RF: 0 aspirin 81 mg Tablet,Delayed Release (Dr/Ec) 81 mg PO DAILY@0700 RF: 0 amlodipine 10 mg Tablet 10 mg PO DAILY@0700 RF: 0 pravastatin 20 mg Tablet 20 mg PO DAILY@0700 RF: 0 furosemide 20 mg Tablet 20 mg PO BID RF: 0 doxazosin 2 mg Tablet 2 mg PO BID RF: 0 cholecalciferol (vitamin D3) [Vitamin D3] 125 mcg (5,000 unit) Tablet 125 mcg PO DAILY@0700 RF: 0 Discharge Orders: Discharge Order (Routine); Ordered 01/23/20 Ordered By: Kacie Aquino Admission Data Admit Date/Time: 01/15/20 17:59 Attending Provider: Corby Peguero Admit Provider: Shannon Betancourt Primary Care Provider: Naren Oliva Other Providers: Corby Peguero ; Amando Cho ; Mirza Interiano Other DC Date/Time DO NOT enter until pt leaves facility: 01/23/20 16:15 Supervising Physician Co-Signing Physician Notes I supervised Kacie Aquino NP on this patient's care. I examined the patient today independently of her. I discussed the plan of care with her with the plan being as written in her note except for any following changes/exceptions: None. Unfortunately, rash is getting worse. It is unclear if this is autoimmune or a drug reaction from the linezolid. I do feel he needs tertiary care with inpatient rheum, derm, and ID team which we do not currently have at [facility]. Coding Level of Care Code D/C Day Management >30 mins Diagnoses Acute respiratory failure J96.00 Cellulitis of left leg L03.116 Rash R21 Elevated troponin R79.89 Hypotension I95.9 Hypotension type: unspecified hypotension type HLD (hyperlipidemia) E78.5 Morbid obesity with BMI of 45.0-49.9, adult E66.01; Z68.42 Venous ulcer of left lower extremity without varicose veins I87.2; L97.929 Acute kidney injury N17.9 Insomnia G47.00 DVT prophylaxis Z29.9
[2020-01-23] MEDS: OXYCODONE HCL IR 5 MG TAB (IMMEDIATE RELEASE) PO PRN (15:33)
[2020-01-27 22:41] LABS: Complement C3 151 mg/dL (82-185); Complement Total(CH50) >60 U/mL (31-60)
== END 2020-01-23 16:15 | disposition short-term general hospital (02) | DRG 871 ==
LOC: ED 13:03 → SUATTDRO 17:59 → EDINP 17:59 → 2S 01-16 00:55 → 2W 01-17 14:12 → 3E 01-18 12:05